=== PATIENT | female | born 1940 | race Caucasian/White ===

== ENCOUNTER → 2018-07-12 11:19 | Outpatient (CLI) | payer MEDICARE, BC, SELFPAY ==
[2018-07-12 12:44] LABS: BUN Creatinine Ratio 16.7 (6-22); Blood Urea Nitrogen 15 mg/dL (7-17); Calcium 9.3 mg/dL (8.4-10.2); Carbon Dioxide 28 mmol/L (22-32); Chloride 98 mmol/L (98-107); Cholesterol 189 mg/dL (140-199); Estimated Glomerular Filt Rate > 60.0 mL/min (>60); Glucose 115 mg/dL (80-110); HDL Cholesterol 84 mg/dL (40-60); HEMOLYSIS < 15 (0-50); LDL Cholesterol Calculated 89 mg/dL (<100); Sodium 141 mmol/L (137-145); Triglycerides 81 mg/dL (35-150)
[2018-07-12 15:29] LABS: Vitamin D 25 Hydroxy (D3) 37.8 ng/mL (30.0-100.0)
== END ==
PROVIDERS: PCP Student in an Organized Health Care Education/Training Program; Visit Provider Student in an Organized Health Care Education/Training Program
DX: E55.9 Vitamin D deficiency, unspecified (principal); I10 Essential (primary) hypertension; Z13.220 Encounter for screening for lipoid disorders
CPT/HCPCS: 36415; 80048; 80061; 82306

== ENCOUNTER → 2019-02-09 12:48 | Outpatient (CLI) | payer MEDICARE, BC, SELFPAY ==
--- NOTE | 2019-02-14 10:36 | PM.PFT.1 ---
Pulmonary Function Test Referral & Results Date Patient Seen: 02/09/19 Results: The spirometry demonstrates an FVC of 1.69 L which is 62% of predicted. The FEV1 was measured at 1.05 L which is 51% of predicted. The FEV1/FVC ratio was 62 which is 83% of predicted. Following the administration of bronchodilator there was 24% improvement in FEV1 and a 79% improvement in FEF 25-75%. Lung volumes show an SVC of 2.18 L which is 79% of predicted. The diffusing capacity was measured at 14.60 which is 58% of predicted. No hemoglobin value was provided, so no correction for potential anemia could be made, if appropriate. The maximum voluntary ventilation was reduced Interpretation: This study demonstrates moderately severe obstructive lung disease with evidence of significant benefit following bronchodilator administration based on improvement in FEV1 There is also mild restrictive lung disease present There is also significant disease at the capillary alveolar level based on reduction in diffusing capacity as above This is consistent with a diagnosis of COPD Clinical correlation suggested
== END ==
PROVIDERS: PCP Student in an Organized Health Care Education/Training Program; Visit Provider Student in an Organized Health Care Education/Training Program
DX: J44.9 Chronic obstructive pulmonary disease, unspecified (principal)
CPT/HCPCS: 94060; 94726; 94729

== ENCOUNTER → 2019-03-19 12:18 | Outpatient (CLI) | payer MEDICARE, BC, SELFPAY ==
[2019-03-19 15:27] LABS: Appearance Urine UA TURBID; Bilirubin Urine UA NEGATIVE (NEGATIVE); Color Urine UA YELLOW; Glucose Urine UA NEGATIVE (Negative); Ketones Urine UA TRACE (NEGATIVE); Leukocyte Esterase Urine UA 2+ (NEGATIVE); Nitrite Urine UA NEGATIVE (Negative); Occult Blood Urine UA 3+ (Negative); Protein Urine UA 2+ (Negative); Urobilinogen Urine UA 0.2 E.U./dL (0.2); pH Urine UA 5.5 (4.5-8.0)
[2019-03-19 16:09] LABS: Bacteria Urine Many (>30); Culture Indicated Urine Specimen Cultured; RBC Urine 10-30/HPF (0-5/HPF); Squamous Epithelial Cell Urine 0-1 /HPF (0-5/HPF); Transitional Epi Cells Urine 0-1/HPF (0-5/HPF); WBC Urine 10-30/HPF (0-5/HPF)
== END ==
PROVIDERS: PCP Student in an Organized Health Care Education/Training Program; Visit Provider Student in an Organized Health Care Education/Training Program
DX: R30.0 Dysuria (principal)
CPT/HCPCS: 81001; 87077; 87086; 87186

== ENCOUNTER → 2019-10-25 12:04 | Outpatient (CLI) | payer MEDICARE, BC, SELFPAY ==
[2019-10-25 13:27] LABS: BUN Creatinine Ratio 17.2 (6-22); Blood Urea Nitrogen 20 mg/dL (7-17); Calcium 9.7 mg/dL (8.4-10.2); Carbon Dioxide 28 mmol/L (22-32); Chloride 100 mmol/L (98-107); Estimated Glomerular Filt Rate 45.1 mL/min (>60); Glucose 97 mg/dL (80-110); HEMOLYSIS < 15 (0-50); Potassium 3.4 mmol/L (3.4-5.1); Sodium 139 mmol/L (137-145)
== END ==
PROVIDERS: PCP Student in an Organized Health Care Education/Training Program; Referring Provider Student in an Organized Health Care Education/Training Program; Visit Provider Student in an Organized Health Care Education/Training Program
DX: E87.6 Hypokalemia (principal); I10 Essential (primary) hypertension; T50.2X5A Adverse effect of carbonic-anhydrase inhibitors, benzothiadiazides and other diuretics, initial encounter
CPT/HCPCS: 36415; 80048

== ENCOUNTER → 2020-01-18 10:34 | Outpatient (CLI) | payer MEDICARE, BC, SELFPAY ==
[2020-01-18 11:52] LABS: BUN Creatinine Ratio 27.3 (6-22); Blood Urea Nitrogen 30 mg/dL (7-17); Calcium 10.1 mg/dL (8.4-10.2); Carbon Dioxide 29 mmol/L (22-32); Chloride 99 mmol/L (98-107); Estimated Glomerular Filt Rate 47.9 mL/min (>60); Glucose 117 mg/dL (80-110); HEMOLYSIS < 15 (0-50); Potassium 3.8 mmol/L (3.4-5.1); Sodium 137 mmol/L (137-145)
== END ==
PROVIDERS: PCP Student in an Organized Health Care Education/Training Program; Referring Provider Student in an Organized Health Care Education/Training Program; Visit Provider Student in an Organized Health Care Education/Training Program
DX: E87.6 Hypokalemia (principal); N17.9 Acute kidney failure, unspecified
CPT/HCPCS: 36415; 80048

== ENCOUNTER → 2022-06-09 13:40 | Outpatient (CLI) | payer MEDICARE, BC, SELFPAY ==
[2022-06-09 15:47] LABS: Add Manual Diff / Slide Review NO; Basophils Absolute Auto 0 /uL (0-100); Eosinophils Absolute Auto 100 /uL (0-450); Eosinophils Percent Auto 2.7 % (2-4); Hematocrit 35.6 % (36-46); Hemoglobin 11.9 g/dL (12.0-16.0); Lymphocytes Absolute Auto 1300 /uL (1100-4500); Lymphocytes Percent Auto 28.8 % (25-40); Mean Corpuscular HGB Conc 33.6 % (30-36); Mean Corpuscular Hemoglobin 32.9 PG (26-34); Mean Corpuscular Volume 97.9 fL (80-100); Monocytes Absolute Auto 500 /uL (0-900); Neutrophils Absolute Auto 2500 /uL (1500-7000); Neutrophils Percent Auto 55.5 % (50-75); Platelet Count 183 X10^3/uL (150-400); Red Blood Cell Count 3.63 X10^6/uL (4.0-5.2); Red Cell Distribution Width 15.2 % (11.6-14.8); White Blood Cell Count 4.6 X10^3/uL (4.5-11.0)
[2022-06-09 15:59] LABS: Alanine Aminotransferase 22 IU/L (<35); Albumin 3.9 g/dL (3.5-5.0); Albumin Globulin Ratio 1.4 (1.0-2.8); Alkaline Phosphatase 126 U/L (38-126); Aspartate Aminotransferase 33 IU/L (14-36); Bilirubin Total 0.7 mg/dL (0.2-1.3); Blood Urea Nitrogen 16 mg/dL (7-17); Calcium 9.3 mg/dL (8.4-10.2); Carbon Dioxide 31 mmol/L (22-32); Chloride 97 mmol/L (98-107); Cholesterol 176 mg/dL (140-199); Estimated Glomerular Filt Rate 44 mL/min (>60); Globulin 2.8 g/dL (1.7-4.1); Glucose 117 mg/dL (80-110); HDL Cholesterol 65 mg/dL (40-60); HEMOLYSIS < 15 (0-50); LDL Cholesterol Calculated 82 mg/dL (<100); Potassium 3.5 mmol/L (3.4-5.1); Sodium 138 mmol/L (137-145); Total Protein 6.7 g/dL (6.3-8.2); Triglycerides 146 mg/dL (35-150)
[2022-06-09 16:02] LABS: Hemoglobin A1C% w Est Avg Glu 4.9 % (4.0-6.0)
[2022-06-09 16:29] LABS: TSH w/ Reflex to FT4 1.16 uIU/mL (0.47-4.68)
== END ==
PROVIDERS: PCP Family Medicine; Referring Provider Family Medicine; Visit Provider Family Medicine
DX: R00.2 Palpitations (principal); I10 Essential (primary) hypertension
CPT/HCPCS: 36415; 80053; 80061; 83036; 84443; 85025

== ENCOUNTER → 2022-06-28 16:23 | Outpatient (CLI) | payer MEDICARE, BC, SELFPAY | PROVIDERS: PCP Family Medicine; Visit Provider Family Medicine | DX: R10.9 Unspecified abdominal pain (principal) | CPT/HCPCS: 87086 ==

== ENCOUNTER 2022-07-21 11:27 | Emergency (ER) | payer MEDICARE, BC, SELFPAY ==
[2022-07-21 12:14] VITALS: BP 148/68; PULSE 72; RESP 16; TEMP 36.8; O2SAT 93; BMI 31.6
--- NOTE | 2022-07-21 13:16 | ED.URI ---
HPI - URI/Sore Throat General Chief Complaint: Upper Respiratory Symptoms Stated Complaint: x7 days cough, SOB, fever 100.6, high blood pressu Time Seen by Provider: 07/21/22 12:23 Source: patient Mode of arrival: Ambulatory History of Present Illness HPI Narrative: This is a 82-year-old female presents to the emergency department complaining of 1 week with a mild cough last week, and today she feels flushed she had a low-grade fever, not feeling well, her temperature was 100.6? this morning and she has a headache and chills which is new. She has a history of hypertension, COPD, OLEGARIO, and was concerned about influenza. She states that she is received influenza vaccine this year as well as the COVID with booster vaccines. Patient is not anticoagulated, does not have history of diabetes. She denies being short of breath or difficulty breathing, states that she has a cough which has been worsening. She denies any difficulty breathing, swelling, vomiting, dysuria, or stool changes. Related Data Home Medications Medication Instructions Recorded Confirmed vitamin B complex (B Complex 1 1 tab PO DAILY 05/25/18 06/28/22 tablet) aspirin 81 mg tablet,delayed 81 mg PO DAILY 06/08/22 06/28/22 release (Adult Low Dose Aspirin) fluticasone propionate 44 2 puff inhalation BID 06/08/22 06/28/22 mcg/actuation HFA aerosol inhaler hydralazine 10 mg tablet 10 mg PO BID 06/08/22 06/28/22 magnesium 250 mg tablet 250 mg PO DAILY 06/08/22 06/28/22 potassium citrate 99 mg capsule mg PO 06/08/22 06/28/22 carvedilol 25 mg tablet 12.5 mg PO BID 06/28/22 06/28/22 Previous Rx's Medication Instructions Recorded tiotropium bromide 2.5 2 puff inhalation DAILY #4 grams 06/11/19 mcg/actuation mist for inhalation (Spiriva Respimat) rosuvastatin 5 mg tablet 5 mg PO DAILY #90 tabs 11/23/19 diltiazem HCl 360 mg capsule,24 360 mg PO DAILY #90 caps 04/09/20 hr,extended release irbesartan 150 mg tablet 150 mg PO BID #180 tabs 04/15/20 clonidine 0.2 mg/24 hr weekly 1 patch transdermal QWEEK #12 ea 05/23/20 transdermal patch benzonatate 200 mg capsule 200 mg PO BID PRN cough #14 caps 07/21/22 cetirizine 10 mg tablet 10 mg PO DAILY PRN congestion #30 07/21/22 tabs prednisone 20 mg tablet 20 mg PO DAILY 5 days #5 tabs 07/21/22 Allergies Allergy/AdvReac Type Severity Reaction Status Date / Time No Known Drug Allergies Allergy Verified 07/21/22 12:14 Review of Systems Review of Systems ROS Unobtainable: All systems reviewed & are unremarkable except as noted in HPI and below Patient History Medical History Breast cancer (2012) Chicken pox COPD (chronic obstructive pulmonary disease) (2013) Depression Eczema (2008) Fractures (2014) Herpes Hypertension (1983) Macular degeneration (~2004) Measles Mumps Myocardial infarction (~2020) Osteoarthritis (~1979) Osteopenia Partial blindness (~2009) Shoulder pain (2015) Sleep apnea (2013) Family History Father Stroke Mother Cancer Brother Cancer Sister No problems noted. Social History Smoking Status: Former smoker Smoking Status: Former smoker alcohol intake frequency: holidays/special occasions only Substance Use Type: does not use Exam Narrative Exam Narrative: Reviewed vitals signs and nursing notes. General: cooperative, comfortable, in no acute distress, well groomed, appears tired, over dressed for the temperature HEENT: symmetrical facial expressions, moist mucous membranes Cardiovascular: regular rate and rhythm, no peripheral edema, warm extremities Respiratory: normal effort, able to speak in complete sentences, without wheezing, stridor, or abnormal breath sounds. No retractions or tachypnea. Occasional cough occasional squeak GI: abdomen soft, nontender to palpation, nondistended, without masses, rebound tenderness or exquisite tenderness with exam. MSK: moves all extremities, neurovascularly intact, no weakness, normal tone Skin: brisk capillary refill, without pallor or erythema Neuro: normal speech and cognition, A&O x3, ambulatory, clear speech Psych: mental status is grossly normal, congruent mood, normal affect, pleasant and cooperative Initial Vital Signs Initial Vital Signs: Vital Signs Temperature 98.2 F 07/21/22 12:14 Pulse Rate 72 07/21/22 12:14 Respiratory Rate 16 07/21/22 12:14 Blood Pressure 148/68 H 07/21/22 12:14 Pulse Oximetry 93 07/21/22 12:14 Oxygen Delivery Method 07/21/22 12:14 Course Orders Ordered: Discontinued Medications Ibuprofen (Ibuprofen 400 Mg Tablet) 600 mg PO NOW ONE Stop: 07/21/22 12:43 Vital Signs Vital signs: Vital Signs - 8 hr 07/21/22 12:14 Temperature 98.2 F Pulse Rate 72 Respiratory Rate 16 Blood Pressure 148/68 H Pulse Oximetry 93 Oxygen Delivery Method Room Air MDM - URI/Sore Throat Lab Data Labs: Lab Results 07/21/22 Range/Units 12:18 SARS-CoV-2 (PCR) Positive H (Negative) Influenza A (RT-PCR) Flu a negative (NEGATIVE) Influenza B (RT-PCR) Flu b negative (NEGATIVE) RSV (PCR) Negative (Negative) MDM Narrative Medical decision making narrative: This is an 82-year-old female presents to the emergency department with a cough which has been mild for the last week, worsening last night with mild fever this morning, she has not taken Tylenol or ibuprofen prior to arrival. She came in with concern about her COPD history, and for influenza. She did not want to wait for 3 hours or more in the waiting room. She left after my evaluation. on my exam, she had an occasional squeak on exhalation but does not have increased work of breathing, hypoxia, or worsening symptoms. Patient's respiratory panel came back positive for COVID-19. She was phoned as she left prior to receiving these results, discussed this with her and she is in quarantine already. She is staying at [facility], discussed symptom management, she was prescribed Zyrtec, benzonatate, and prednisone prior to this diagnosis. I talked to her on the phone and told her that if she does not have significant shortness of breath to avoid taking the prednisone unless her shortness of breath is worsening. And then if it is to come back to the emergency department. She states understanding. This is day 2 over symptoms. She is without hypoxia, respiratory distress, dehydration, or focal exam to suggest secondary bacterial infection. Discussed CDC guidelines for quarantine, mask wearing, physical distancing, and infection prevention measures such as frequent handwashing. Discussed supportive treatments: Tylenol/Motrin as needed for pain/fever. OTC decongestant medications and/or antihistamines for symptomatic relief. Maintain adequate fluid intake. Follow-up with PCP as directed. Return to clinic/ER instructions discussed for new, not improving, or worsening symptoms. All questions answered. Discharge Plan Departure Patient Disposition: Home Clinical Impression: COVID-19, History of COPD Cough Qualifiers: Cough type: acute Qualified Code(s): R05.1 - Acute cough Instructions: DI for Chronic Obstructive Pulmonary Disease Activity Restrictions/Additional Instructions: *You have been diagnosed with [ ] *What to do: *Please continue to take your regular medications as directed. [ ] New medication prescriptions sent to your pharmacy: [ ] [ ] New medication written as a paper prescription [ ] No new medications given *Please follow up with your primary care provider in 2-3 days, call for an appointment. Let them know you were seen in the Emergency Department and that we asked that you be seen for follow-up. We will electronically transmit a record of today's note if your PCP is in our system *If you do not have a primary care provider please contact [phone] to establish care with one of the [facility] primary care providers. *Return to Emergency Department if you should have any new, worsening, or concerning symptoms, such as [fever greater than 101F, chills, worsening pain, persistent vomiting or other bothersome symptoms]. Prescriptions: New prednisone 20 mg tablet 20 mg PO DAILY 5 Days Qty: 5 0RF benzonatate 200 mg capsule 200 mg PO BID PRN (Reason: cough) Qty: 14 0RF cetirizine 10 mg tablet 10 mg PO DAILY PRN (Reason: congestion) Qty: 30 0RF No Action vitamin B complex [B Complex 1] tablet 1 tab PO DAILY Spiriva Respimat 2.5 mcg/actuation mist 2 puff INHALATION DAILY Qty: 4 11RF rosuvastatin 5 mg tablet 5 mg PO DAILY Qty: 90 3RF diltiazem HCl 360 mg capsule,extended release 24 hr 360 mg PO DAILY Qty: 90 3RF irbesartan 150 mg tablet 150 mg PO BID Qty: 180 1RF clonidine 0.2 mg/24 hr patch weekly 1 patch Transdermal QWEEK Qty: 12 1RF aspirin [Adult Low Dose Aspirin] 81 mg tablet,delayed release (DR/EC) 81 mg PO DAILY hydralazine 10 mg tablet 10 mg PO BID magnesium 250 mg tablet 250 mg PO DAILY potassium citrate 99 mg capsule PO fluticasone propionate 44 mcg/actuation HFA aerosol inhaler 2 puff inhalation BID Rx Instructions: administer with spacer carvedilol 25 mg tablet 12.5 mg PO BID Rx Instructions: must administer with a meal/food Referrals: Anum Quispe DO [Primary Care Provider] - Visit Report Forms: Patient Portal/API
[2022-07-21 14:30] LABS: Influenza A - CEPHEID Flu A NEGATIVE (NEGATIVE); Influenza B - CEPHEID Flu B NEGATIVE (NEGATIVE); Respiratory Syncytial Virus Negative (Negative)
[2022-07-21 14:35] LABS: COVID-19 CEPHEID 4-PLEX PCR POSITIVE (Negative)
== END 2022-07-21 13:42 | disposition home or self-care (01) ==
PROVIDERS: Emergency Medicine; Emergency Provider Nurse Practitioner Critical Care Medicine; PCP Family Medicine
DX: U07.1 COVID-19 (principal); R05.1 Acute cough; Z87.09 Personal history of other diseases of the respiratory system; Z79.899 Other long term (current) drug therapy
CPT/HCPCS: 0241U; 99281; 99282

== ENCOUNTER → 2022-10-04 | Outpatient (CLI) | payer MEDICARE, BC, SELFPAY ==
--- NOTE | 2022-10-04 | DI.RAD.S_ITS ---
PROCEDURE: XR KUB INDICATIONS: KIDNEY STONE TECHNIQUE: One view of the abdomen acquired. COMPARISON: None. FINDINGS: Surgical changes and devices: Prior cholecystectomy. Multilevel lumbosacral posterior/interbody fusion incompletely evaluated. Bowel: Bowel gas pattern is normal. Soft tissues: No suspicious abdominal calcifications. Visualized solid organ contours appear normal in size. Bones: No suspicious bony lesions. Symmetric hip joint degeneration. IMPRESSION: No radiopaque renal, ureteral or bladder calculi. Dictated by: Hua Gomez [facility] Interpreted: Gopi Lam MD on 10/04/2022 at 14:20 Transcribed by: [place] on 10/04/2022 at 14:21 Approved by: Gopi Lam M.D. on 10/18/2022 at 15:33
== END ==
LOC: DI 13:40
PROVIDERS: PCP Family Medicine; Referring Provider Urology; Visit Provider Urology
DX: N20.0 Calculus of kidney (principal)
CPT/HCPCS: 74018

== ENCOUNTER → 2023-01-28 13:02 | Outpatient (CLI) | payer MEDICARE, BC, SELFPAY ==
[2023-01-28 15:15] LABS: Add Manual Diff / Slide Review NO; Basophils Absolute Auto 100 /uL (0-100); Eosinophils Absolute Auto 200 /uL (0-450); Eosinophils Percent Auto 3.8 % (2-4); Hematocrit 34.9 % (36-46); Hemoglobin 11.8 g/dL (12.0-16.0); Lymphocytes Absolute Auto 1300 /uL (1100-4500); Lymphocytes Percent Auto 23.6 % (25-40); Mean Corpuscular HGB Conc 33.7 % (30-36); Mean Corpuscular Volume 97.8 fL (80-100); Monocytes Absolute Auto 600 /uL (0-900); Monocytes Percent Auto 11.7 % (3-14); Neutrophils Absolute Auto 3200 /uL (1500-7000); Neutrophils Percent Auto 59.9 % (50-75); Platelet Count 170 X10^3/uL (150-400); Red Blood Cell Count 3.57 X10^6/uL (4.0-5.2); Red Cell Distribution Width 14.7 % (11.6-14.8); White Blood Cell Count 5.3 X10^3/uL (4.5-11.0)
[2023-01-28 16:47] LABS: Alanine Aminotransferase 21 IU/L (<35); Albumin 3.8 g/dL (3.5-5.0); Albumin Globulin Ratio 1.3 (1.0-2.8); Alkaline Phosphatase 128 U/L (38-126); Aspartate Aminotransferase 31 IU/L (14-36); BUN Creatinine Ratio 21.2 (6-22); Bilirubin Total 0.5 mg/dL (0.2-1.3); Blood Urea Nitrogen 29 mg/dL (7-17); Calcium 8.9 mg/dL (8.4-10.2); Carbon Dioxide 34 mmol/L (22-32); Chloride 98 mmol/L (98-107); Estimated Glomerular Filt Rate 39 mL/min (>60); Glucose 99 mg/dL (80-110); HEMOLYSIS < 15 (0-50); Potassium 3.7 mmol/L (3.4-5.1); Sodium 139 mmol/L (137-145); Total Protein 6.8 g/dL (6.3-8.2)
== END ==
PROVIDERS: PCP Family Medicine; Referring Provider Family Medicine; Visit Provider Family Medicine
DX: Z00.00 Encounter for general adult medical examination without abnormal findings (principal); I10 Essential (primary) hypertension; I48.19 Other persistent atrial fibrillation; N18.30 Chronic kidney disease, stage 3 unspecified
CPT/HCPCS: 36415; 80053; 85025

== ENCOUNTER → 2023-02-01 15:04 | Outpatient (CLI) | payer MEDICARE, BC, SELFPAY ==
--- NOTE | 2023-03-02 10:23 | P.PFT.S_ITS ---
Pulmonary Function Test Referral & Results Date Patient Seen: 02/01/23 Results: The?spirometry?demonstrates?an?FVC?of?1.69?L?which?is?66%?of?predicted. The?FEV1?was?measured?at?1.10?L?which?is?58%?of?predicted. The?FEV1/FVC?ratio?was?65?which?is?88%?of?predicted. Following?the?admini stration?of?bronchodilator?there?was?11%?improvement?in?FEV1?and?a?35%?improveme nt?in?FEF?25-75%. Lung?volumes?show?an?SVC?of?1.95?L?which?is?73%?of?predicted. The?diffusing?capacity?was?measured?at ?13.33?which?is?53%?of?predicted.??No?hemoglobin?value?was?provided,?so?no?corre ction?for?potential?anemia?could?be?made,?if?appropriate. The?maximum?voluntary?ventilation?was?reduced Interpretation: This?study?demonstrates?moderate?obstructive?lung?disease?based?on?reduction?FEV 1?although?FEV1/FVC?ratio?is?relatively?preserved.??T here?is?evidence?of?some?minimal?benefit?following?bronchodilator?as?noted?above There?is?a?[id number]-[id number]?reduction?in?lung?volumes?suggesting?the?presence?of ?restrictive?lung?disease?as?well The re?is?also?moderate?reduction?diffusing?capacity?suggesting?the?presence?of?dise ase?at?the?capillary?alveolar?level Altogether?this?is?consistent?with?a?diagnosis?of?COPD? Clinical?correlation?suggested
--- NOTE | 2023-03-02 10:23 | PM.PFT.1 ---
Pulmonary Function Test Referral & Results Date Patient Seen: 02/01/23 Results: The?spirometry?demonstrates?an?FVC?of?1.69?L?which?is?66%?of?predicted. The?FEV1?was?measured?at?1.10?L?which?is?58%?of?predicted. The?FEV1/FVC?ratio?was?65?which?is?88%?of?predicted. Following?the?administration?of?bronchodilator?there?was?11%?improvement?in?FEV1?and?a?35%?improvement?in?FEF?25-75%. Lung?volumes?show?an?SVC?of?1.95?L?which?is?73%?of?predicted. The?diffusing?capacity?was?measured?at?13.33?which?is?53%?of?predicted.??No?hemoglobin?value?was?provided,?so?no?correction?for?potential?anemia?could?be?made,?if?appropriate. The?maximum?voluntary?ventilation?was?reduced Interpretation: This?study?demonstrates?moderate?obstructive?lung?disease?based?on?reduction?FEV1?although?FEV1/FVC?ratio?is?relatively?preserved.??There?is?evidence?of?some?minimal?benefit?following?bronchodilator?as?noted?above There?is?a?[id number]?reduction?in?lung?volumes?suggesting?the?presence?of?restrictive?lung?disease?as?well There?is?also?moderate?reduction?diffusing?capacity?suggesting?the?presence?of?disease?at?the?capillary?alveolar?level Altogether?this?is?consistent?with?a?diagnosis?of?COPD? Clinical?correlation?suggested
== END ==
PROVIDERS: PCP Family Medicine; Referring Provider Family Medicine; Visit Provider Family Medicine
DX: J44.9 Chronic obstructive pulmonary disease, unspecified (principal); Z87.891 Personal history of nicotine dependence
CPT/HCPCS: 94060; 94726; 94729

== ENCOUNTER 2023-06-16 08:21 | Emergency (ER) | payer MEDICARE, BC, SELFPAY ==
[2023-06-16] VITALS (40 sets, daily range): BP systolic 154–245; BP diastolic 66–116; PULSE 70–91; RESP 10–32; TEMP 36.3; O2SAT 90–98; BMI 31.6
--- NOTE | 2023-06-16 08:32 | DI.RAD.S_ITS ---
PROCEDURE: XR CHEST 1V INDICATIONS: chest pain TECHNIQUE: One view of the chest was acquired. COMPARISON: None. FINDINGS: Surgical changes and devices: None. Lungs and pleura: Lungs are clear. No pleural effusions or pneumothorax. Mediastinum: Mediastinal contours appear normal. Heart size is enlarged. Bones and chest wall: No suspicious bony lesions. Overlying soft tissues appear unremarkable. IMPRESSION: Portable chest within normal limits for age. Dictated by: Malika Santamaria M.D. on 06/16/2023 at 9:01 Approved by: Malika Santamaria M.D. on 06/16/2023 at 9:09
[2023-06-16] MEDS: ASPIRIN 81 MG CHEW TAB 324 MG PO (08:43)
[2023-06-16 08:46] LABS: Add Manual Diff / Slide Review NO; Basophils Absolute Auto 0 /uL (0-100); Eosinophils Absolute Auto 100 /uL (0-450); Eosinophils Percent Auto 2.5 % (2-4); Hematocrit 38.1 % (36-46); Hemoglobin 12.5 g/dL (12.0-16.0); Lymphocytes Absolute Auto 1300 /uL (1100-4500); Mean Corpuscular HGB Conc 32.8 % (30-36); Mean Corpuscular Hemoglobin 31.3 PG (26-34); Mean Corpuscular Volume 95.4 fL (80-100); Monocytes Absolute Auto 500 /uL (0-900); Monocytes Percent Auto 10.9 % (3-14); Neutrophils Absolute Auto 2900 /uL (1500-7000); Neutrophils Percent Auto 59.6 % (50-75); Platelet Count 184 X10^3/uL (150-400); Red Cell Distribution Width 16.6 % (11.6-14.8); White Blood Cell Count 4.9 X10^3/uL (4.5-11.0)
[2023-06-16] MEDS: carvediloL 12.5 MG TABLET PO (08:47)
[2023-06-16] MEDS: dilTIAZem CD 180 MG CAP PO (08:48)
--- NOTE | 2023-06-16 08:51 | ED_ITS ---
HPI - Chest Pain General Chief Complaint: Chest Pain Stated Complaint: N T-2 can't eat/weak/Afib Time Seen by Provider: 06/16/23 08:26 Mode of arrival: Wheelchair History of Present Illness HPI narrative: Patient here for shortness of breath feeling weak dizzy denies any chest pain just palpitations discomfort. Patient blood pressure noted. She is not taken her diltiazem or carvedilol this morning yet. Patient has history of paroxysmal atrial fibrillation and is on Eliquis. She did see her cardiology office June 07 of this year for routine checkup. Her carvedilol was lowered in half twice a day. She still on the diltiazem and clonidine. Verapamil was discontinued. Patient denies any syncope. Patient says she is had some chills and nausea. No cough or congestion. No urinary complaints. She is felt tired and fatigued. Related Data Home Medications Medication Instructions Recorded Confirmed vitamin B complex (B Complex 1 1 tab PO DAILY 05/25/18 06/24/23 tablet) magnesium 250 mg tablet 250 mg PO DAILY 06/08/22 06/24/23 potassium citrate 99 mg capsule mg PO 06/08/22 06/24/23 apixaban 5 mg tablet (Eliquis) 5 mg PO BID 09/08/22 06/24/23 diltiazem HCl 180 mg capsule,24 180 mg PO DAILY 09/08/22 06/24/23 hr,extended release albuterol sulfate 90 mcg/actuation 2 puff inhalation ONCE 02/25/23 06/24/23 aerosol inhaler furosemide 20 mg tablet 20 mg PO DAILY 02/25/23 06/24/23 isosorbide mononitrate 30 mg 30 mg PO DAILY 02/25/23 06/24/23 tablet,extended release 24 hr carvedilol 12.5 mg tablet 12.5 mg PO BID 05/25/23 06/24/23 Previous Rx's Medication Instructions Recorded rosuvastatin 5 mg tablet 5 mg PO DAILY #90 tabs 11/23/19 cetirizine 10 mg tablet 10 mg PO DAILY PRN congestion #30 07/21/22 tabs fluticasone 250 mcg-salmeterol 50 1 inh inhalation BID #180 ea 08/02/22 mcg/dose blistr powdr for inhalation (Wixela Inhub) tiotropium bromide 2.5 2 puff inhalation DAILY #4 grams 01/12/23 mcg/actuation mist for inhalation (Spiriva Respimat) irbesartan 150 mg tablet 150 mg PO DAILY #90 tabs 04/13/23 clonidine 0.1 mg/24 hr weekly See Rx Instructions .Route 04/20/23 transdermal patch .COMPLEX #12 patches Allergies Allergy/AdvReac Type Severity Reaction Status Date / Time No Known Drug Allergies Allergy Verified 06/24/23 14:09 Review of Systems Review of Systems Narrative: GENERAL: Pause chills, fatigue, malaise, negative fever, sweats. HEENT: negative sinus pain, ear pain, sore throat RESPIRATORY: Positive dyspnea, CARDIOVASCULAR: negative chest pain, positive palpitations GASTROINTESTINAL: Positive nausea, negative vomiting, abdominal pain : negative dysuria, frequency, hematuria MUSCULOSKELETAL: negative muscle or bony pain SKIN: negative rash, skin lesions NEUROLOGIC: negative weakness, numbness ROS Unobtainable: All systems reviewed & are unremarkable except as noted in HPI and below Patient History Medical History (Updated 07/01/23 @ 00:01 by ) Grieving Encounter for initial annual wellness visit (AWV) in Medicare patient CKD (chronic kidney disease) stage 3, GFR 30-59 ml/min Atrial fibrillation, persistent Insomnia Osteopenia Measles Herpes Partial blindness (~2009) Myocardial infarction (~2020) Chicken pox Mumps Fractures (2014) Shoulder pain (2015) Depression COPD (chronic obstructive pulmonary disease) (2013) Sleep apnea (2013) Osteoarthritis (~1979) Eczema (2008) Macular degeneration (~2004) Hypertension (1983) Breast cancer (2012) Family History Father Stroke Mother Cancer Brother Cancer Sister No problems noted. Social History Smoking Status: Former smoker Smoking Status: Former smoker alcohol intake frequency: holidays/special occasions only Substance Use Type: does not use Exam Narrative Exam Narrative: GENERAL: in no distress, not toxic not dyspneic HEAD: Normocephalic. EYES: Pupils equal round ENT: Mucous membranes moist. NECK: Trachea midline. CARDIOVASCULAR: Regular rate and rhythm RESPIRATORY: Clear to auscultation. Breath sounds equal bilaterally. No wheezes, rales, or rhonchi. GASTROINTESTINAL: Abdomen soft, non-tender EXTREMITIES: No gross deformities. BACK: No flank tenderness. NEURO: AOx4. SKIN: Warm and dry PSYCH: Not anxious, is cooperative Initial Vital Signs Initial Vital Signs: Vital Signs Temperature 97.3 F L 06/16/23 08:28 Pulse Rate 89 06/16/23 08:28 Respiratory Rate 22 06/16/23 08:28 Blood Pressure 245/116 H 06/16/23 08:28 Pulse Oximetry 90 L 06/16/23 08:28 Oxygen Delivery Method Room Air 06/16/23 08:28 Course Orders Ordered: Discontinued Medications Aspirin (Aspirin 81 Mg Chew Tab) 324 mg PO NOW ONE Stop: 06/16/23 08:33 Last Admin: 06/16/23 08:43 Dose: 324 mg Documented By: MATA Carvedilol (Carvedilol 12.5 Mg Tablet) 12.5 mg PO NOW ONE Stop: 06/16/23 08:40 Last Admin: 06/16/23 08:47 Dose: 12.5 mg Documented By: MATA Diltiazem HCl (Diltiazem Cd 180 Mg Cap) 180 mg PO NOW ONE Stop: 06/16/23 08:40 Last Admin: 06/16/23 08:48 Dose: 180 mg Documented By: MATA Heparin Sodium/Dextrose (Heparin Drip) 25,000 unit in 500 mls @ 20.031 mls/hr IV CONT SYED; Protocol Last Titration: 06/16/23 16:10 Dose: 12 units/kg/hr, 20.031 mls/hr Documented By: TEOFILO Co-signed By: KF Admin: 06/16/23 12:40 Dose: 12 units/kg/hr, 20.031 mls/hr Documented By: KATHRINE Co-signed By: WVVerna Nitroglycerin (Nitroglycerin Oint 1 Inch/Gm Oint...G.) 0.5 inch TOP NOW ONE Stop: 06/16/23 10:54 Last Admin: 06/16/23 10:57 Dose: 0.5 inch Documented By: ANGY Vital Signs Vital signs: Vital Signs - 8 hr 06/16/23 08:28 06/16/23 08:29 06/16/23 08:29 Temperature 97.3 F L Pulse Rate 89 70 Respiratory Rate 22 Blood Pressure 245/116 H 245/116 H Pulse Oximetry 90 L Oxygen Delivery Method Room Air 06/16/23 08:30 06/16/23 08:31 06/16/23 08:31 Temperature Pulse Rate 90 91 H Respiratory Rate 18 16 Blood Pressure 230/105 H Pulse Oximetry 93 Oxygen Delivery Method 06/16/23 08:47 06/16/23 09:00 06/16/23 09:00 Temperature Pulse Rate 80 83 Respiratory Rate 15 Blood Pressure 230/105 H 220/105 H Pulse Oximetry 97 Oxygen Delivery Method 06/16/23 09:15 06/16/23 09:15 06/16/23 09:21 Temperature Pulse Rate 79 Respiratory Rate 12 Blood Pressure 213/98 H 191/95 H Pulse Oximetry 94 Oxygen Delivery Method 06/16/23 09:21 06/16/23 09:30 06/16/23 09:30 Temperature Pulse Rate 79 77 Respiratory Rate 17 Blood Pressure 176/84 H Pulse Oximetry 94 94 Oxygen Delivery Method 06/16/23 09:45 06/16/23 09:45 06/16/23 10:00 Temperature Pulse Rate 77 74 Respiratory Rate 14 17 Blood Pressure 154/82 H Pulse Oximetry 95 94 Oxygen Delivery Method 06/16/23 10:00 06/16/23 10:15 06/16/23 10:15 Temperature Pulse Rate 74 Respiratory Rate 10 L Blood Pressure 157/84 H 179/79 H Pulse Oximetry 97 Oxygen Delivery Method 06/16/23 10:30 06/16/23 10:46 06/16/23 10:46 Temperature Pulse Rate 74 79 Respiratory Rate 11 L 15 Blood Pressure 182/87 H Pulse Oximetry 96 95 Oxygen Delivery Method 06/16/23 10:52 06/16/23 10:52 06/16/23 10:57 Temperature Pulse Rate 79 76 Respiratory Rate Blood Pressure 167/96 H 167/96 H Pulse Oximetry 96 Oxygen Delivery Method 06/16/23 11:03 06/16/23 11:04 06/16/23 11:04 Temperature Pulse Rate 85 83 Respiratory Rate 25 H Blood Pressure 190/95 H Pulse Oximetry 96 95 Oxygen Delivery Method 06/16/23 11:15 06/16/23 11:15 06/16/23 11:30 Temperature Pulse Rate 75 73 Respiratory Rate 15 14 Blood Pressure 189/86 H Pulse Oximetry 95 95 Oxygen Delivery Method 06/16/23 11:30 06/16/23 11:45 06/16/23 11:45 Temperature Pulse Rate 74 Respiratory Rate 19 Blood Pressure 195/89 H 174/79 H Pulse Oximetry 94 Oxygen Delivery Method 06/16/23 12:00 Temperature Pulse Rate 78 Respiratory Rate 22 Blood Pressure Pulse Oximetry 95 Oxygen Delivery Method MDM - Chest Pain Lab Data 06/16/23 08:33 06/16/23 08:33 Labs: Lab Results 06/16/23 06/16/23 06/16/23 Range/Units 08:33 09:00 11:05 WBC 4.9 (4.5-11.0) X10^3/uL RBC 4.00 (4.0-5.2) X10^6/uL Hgb 12.5 (12.0-16.0) g/dL Hct 38.1 (36-46) % MCV 95.4 (80-100) fL MCH 31.3 (26-34) PG MCHC 32.8 (30-36) % RDW 16.6 H (11.6-14.8) % Plt Count 184 (150-400) X10^3/uL Neut % (Auto) 59.6 (50-75) % Lymph % (Auto) 26.0 (25-40) % [place] % (Auto) 10.9 (3-14) % Eos % (Auto) 2.5 (2-4) % Baso % (Auto) 1.0 (0-2) % Neut # (Auto) 2900 (0058-8133) /uL Lymph # (Auto) 1300 (9202-6733) /uL [place] # (Auto) 500 (0-900) /uL Eos # (Auto) 100 (0-450) /uL Baso # (Auto) 0 (0-100) /uL PT 14.2 H (10.1-12.7) SECONDS INR 1.2 (0.9-1.3) APTT 34 (26-36) SECONDS Sodium 137 (137-145) mmol/L Potassium 3.4 (3.4-5.1) mmol/L Chloride 98 (98-107) mmol/L Carbon Dioxide 30 (22-32) mmol/L BUN 13 (7-17) mg/dL Creatinine 1.09 H (0.52-1.04) mg/dL Estimated GFR 50 L (>60) mL/min BUN/Creatinine Ratio 11.9 (6-22) Glucose 124 H (80-110) mg/dL Calcium 9.9 (8.4-10.2) mg/dL Magnesium 1.8 (1.6-2.3) mg/dL Total Bilirubin 1.0 (0.2-1.3) mg/dL AST 35 (14-36) IU/L ALT 20 (<35) IU/L Alkaline Phosphatase 137 H (38-126) U/L Total Creatine Kinase 40 (30-135) U/L Troponin I 0.013 (0.01-0.034) ng/mL Total Protein 7.5 (6.3-8.2) g/dL Albumin 4.3 (3.5-5.0) g/dL Globulin 3.2 (1.7-4.1) g/dL Albumin/Globulin Ratio 1.3 (1.0-2.8) Lipase 89 (23-300) U/L Urine Color Yellow Urine Appearance Clear Urine pH 7.0 (4.5-8.0) Ur Specific [place] 1.010 (1.000-1.035) Urine Protein 3+ H (Negative) Urine Glucose (UA) Negative (Negative) g/dL Urine Ketones 1+ H (NEGATIVE) Urine Occult Blood Negative (Negative) Urine Nitrate Negative (Negative) Urine Bilirubin Negative (NEGATIVE) Urine Urobilinogen 0.2 (0.2) E.U./dL Ur Leukocyte Esterase Trace H (NEGATIVE) Urine RBC None seen (0-5/HPF) Urine WBC 1-5/hpf (0-5/HPF) Ur Squamous Epith Cells 5-10 /hpf H (0-5/HPF) Ur Transition Epith Cell 1-5/hpf (0-5/HPF) Urine Bacteria None seen (None) Hyaline Casts 1-5/lpf (None) Ur Culture Indicated? Specimen cultured Chlamy pneumoniae PCR Not detected (Not Detect) Adenovirus (PCR) Not detected (Not Detect) B.parapertussis DNA PCR Not detected (Not Detecte) Coronavirus OC43 (PCR) Not detected (Not Detect) Coronavirus HKU1 (PCR) Not detected (Not Detect) Coronavirus 229E (PCR) Not detected (Not Detect) SARS-CoV-2 (PCR) Not detected (Not Detecte) Coronavirus NL63 (PCR) Not detected (Not Detect) Human Metapneumovir PCR Not detected (Not Detect) Influenza Type A (PCR) Not detected (Not Detect) Influenza Type B (PCR) Not detected (Not Detect) M. pneumoniae (PCR) Not detected (Not Detect) Parainfluenza 1 (PCR) Not detected (Not Detect) Parainfluenza 2 (PCR) Not detected (Not Detect) Parainfluenza 3 (PCR) Not detected (Not Detect) Parainfluenza 4 (PCR) Not detected (Not Detect) RSV (PCR) Not detected (Not Detect) Entero/Rhino (PCR) Not detected (Not Detect) 06/16/23 Range/Units 12:10 WBC (4.5-11.0) X10^3/uL RBC (4.0-5.2) X10^6/uL Hgb (12.0-16.0) g/dL Hct (36-46) % MCV (80-100) fL MCH (26-34) PG MCHC (30-36) % RDW (11.6-14.8) % Plt Count (150-400) X10^3/uL Neut % (Auto) (50-75) % Lymph % (Auto) (25-40) % [place] % (Auto) (3-14) % Eos % (Auto) (2-4) % Baso % (Auto) (0-2) % Neut # (Auto) (8599-4213) /uL Lymph # (Auto) (2253-9474) /uL [place] # (Auto) (0-900) /uL Eos # (Auto) (0-450) /uL Baso # (Auto) (0-100) /uL PT (10.1-12.7) SECONDS INR (0.9-1.3) APTT (26-36) SECONDS Sodium (137-145) mmol/L Potassium (3.4-5.1) mmol/L Chloride (98-107) mmol/L Carbon Dioxide (22-32) mmol/L BUN (7-17) mg/dL Creatinine (0.52-1.04) mg/dL Estimated GFR (>60) mL/min BUN/Creatinine Ratio (6-22) Glucose (80-110) mg/dL Calcium (8.4-10.2) mg/dL Magnesium (1.6-2.3) mg/dL Total Bilirubin (0.2-1.3) mg/dL AST (14-36) IU/L ALT (<35) IU/L Alkaline Phosphatase (38-126) U/L Total Creatine Kinase 33 (30-135) U/L Troponin I 0.013 (0.01-0.034) ng/mL Total Protein (6.3-8.2) g/dL Albumin (3.5-5.0) g/dL Globulin (1.7-4.1) g/dL Albumin/Globulin Ratio (1.0-2.8) Lipase (23-300) U/L Urine Color Urine Appearance Urine pH (4.5-8.0) Ur Specific [place] (1.000-1.035) Urine Protein (Negative) Urine Glucose (UA) (Negative) g/dL Urine Ketones (NEGATIVE) Urine Occult Blood (Negative) Urine Nitrate (Negative) Urine Bilirubin (NEGATIVE) Urine Urobilinogen (0.2) E.U./dL Ur Leukocyte Esterase (NEGATIVE) Urine RBC (0-5/HPF) Urine WBC (0-5/HPF) Ur Squamous Epith Cells (0-5/HPF) Ur Transition Epith Cell (0-5/HPF) Urine Bacteria (None) Hyaline Casts (None) Ur Culture Indicated? Chlamy pneumoniae PCR (Not Detect) Adenovirus (PCR) (Not Detect) B.parapertussis DNA PCR (Not Detecte) Coronavirus OC43 (PCR) (Not Detect) Coronavirus HKU1 (PCR) (Not Detect) Coronavirus 229E (PCR) (Not Detect) SARS-CoV-2 (PCR) (Not Detecte) Coronavirus NL63 (PCR) (Not Detect) Human Metapneumovir PCR (Not Detect) Influenza Type A (PCR) (Not Detect) Influenza Type B (PCR) (Not Detect) M. pneumoniae (PCR) (Not Detect) Parainfluenza 1 (PCR) (Not Detect) Parainfluenza 2 (PCR) (Not Detect) Parainfluenza 3 (PCR) (Not Detect) Parainfluenza 4 (PCR) (Not Detect) RSV (PCR) (Not Detect) Entero/Rhino (PCR) (Not Detect) Urine Dip Bedside Urine Glucose Negative Bedside Urine Bilirubin - Negative Bedside Urine Ketone +/- 5 Urine Specific [place] 1.010 Bedside Urine Occult Blood - Negative Bedside Urine pH 7.0 Bedside Urine Protein +++ 300 Bedside Urine Urobilinogen - Negative Bedside Urine Nitrite - Negative Bedside Urine Leukocytes +/- 15 Esterase Imaging Data Chest x-ray: Radiologist's Impression: [address] [id number] XRay Report Signed Patient: Colleen Crooks MR#: [id number] : 1940 Acct:[id number] Age/Sex: 83 / F Date of Service: 06/16/23 Loc: ED Accession Number: [id number] Procedure: XR chest 1V Ordering Provider: Ezra Killian MD PROCEDURE: XR CHEST 1V INDICATIONS: chest pain TECHNIQUE: One view of the chest was acquired. COMPARISON: None. FINDINGS: Surgical changes and devices: None. Lungs and pleura: Lungs are clear. No pleural effusions or pneumothorax. Mediastinum: Mediastinal contours appear normal. Heart size is enlarged. Bones and chest wall: No suspicious bony lesions. Overlying soft tissues appear unremarkable. IMPRESSION: Portable chest within normal limits for age. Dictated by: Malika Santamaria M.D. on 06/16/2023 at 9:01 Approved by: Malika Santamaria M.D. on 06/16/2023 at 9:09 [facility] Narrative Medical decision making narrative: Patient here for shortness of breath feeling weak dizzy denies any chest pain just palpitations discomfort. Patient blood pressure noted. She is not taken her diltiazem or carvedilol this morning yet. Patient has history of paroxysmal atrial fibrillation and is on Eliquis. She did see her cardiology office June 07 of this year for routine checkup. Her carvedilol was lowered in half twice a day. She still on the diltiazem and clonidine. Verapamil was discontinued. Patient denies any syncope. Patient says she is had some chills and nausea. No cough or congestion. No urinary complaints. She is felt tired and fatigued. After history and exam CBC CMP troponin EKG chest x-ray carvedilol diltiazem aspirin MDM CC: Palpitations shortness of breath nausea dizzy Complicating co-morbidities: AFib Data collected from: Patient Medical records reviewed: Cardiology office visit June 07, 2023 Differential considered: Includes but not limited to paroxysmal AFib, viral syndrome, STEMI non-STEMI, angina Exam documented above, pertinent findings include: Nontender chest Lab Test results independently reviewed as above. Pertinent findings: WBC 4.9 hemoglobin 12.5 INR 1.2 sodium 137 potassium 3.4 BUN 13 creatinine 1.09 GFR 50 glucose 124 troponin 0.013 x2 Independently reviewed EKG sinus rhythm rate [address] elevation or depression Imaging studies independently reviewed: Chest x-ray no acute finding Consultations: 12:04 p.m.. Spoke with [facility], cardiology, dr Fraire, he has reviewed patient's records from their hospital. Patient would benefit transfer to their facility for heart catheterization. He would like patient started on heparin. 1:25 p.m.. Spoke with [facility], Dr. Qiu, hospitalist, who will admit patient Treatments: Carvedilol diltiazem aspirin, heparin Re-evaluations: 12:05 p.m.. Patient chest pain-free after nitro paste placed here. She developed chest discomfort about a couple hours ago. I did review with her results and my discussion with her cardiology provider/team, she does agree and understand need for transfer to [facility] as we do not have catheterization resources here. Discussion: Appropriate for transfer to [facility] for continuity of care and patient's Cardiology team. Patient chest pain-free. Laboratory studies and imaging are reassuring. Patient has received aspirin and heparin. Diagnosis: Unstable angina Discharge Plan Departure Patient Disposition: [facility] Clinical Impression: Angina pectoris, unstable Prescriptions: No Action vitamin B complex [B Complex 1] tablet 1 tab PO DAILY rosuvastatin 5 mg tablet 5 mg PO DAILY Qty: 90 3RF fluticasone propion-salmeterol [Wixela Inhub] 250-50 mcg/dose blister with device 1 inh inhalation BID Qty: 180 3RF Eliquis 5 mg tablet 5 mg PO BID diltiazem HCl 180 mg capsule,extended release 24 hr 180 mg PO DAILY Spiriva Respimat 2.5 mcg/actuation mist 2 puff INHALATION DAILY Qty: 4 11RF irbesartan 150 mg tablet 150 mg PO DAILY Qty: 90 3RF clonidine 0.1 mg/24 hr patch weekly See Rx Instructions .ROUTE .COMPLEX Qty: 12 3RF Dose Instruction: APPLY 1 PATCH TOPICALLY TO THE SKIN EVERY WEEK FOR BLOOD PRESSURE Rx Instructions: APPLY 1 PATCH TOPICALLY TO THE SKIN EVERY WEEK FOR BLOOD PRESSURE magnesium 250 mg tablet 250 mg PO DAILY potassium citrate 99 mg capsule PO furosemide 20 mg tablet 20 mg PO DAILY Patient Comments: TAKE ONE TABLET BY MOUTH DAILY albuterol sulfate 90 mcg/actuation HFA aerosol inhaler 2 puff inhalation ONCE isosorbide mononitrate 30 mg tablet extended release 24 hr 30 mg PO DAILY carvedilol 12.5 mg tablet 12.5 mg PO BID Rx Instructions: must administer with a meal/food cetirizine 10 mg tablet 10 mg PO DAILY PRN (Reason: congestion) Qty: 30 0RF Referrals: Anum Quispe DO [Primary Care Provider] -
--- NOTE | 2023-06-16 08:51 | PC.NURSE ---
Provider informed immediately of patient high blood pressure. Patient reports not taking any of her prescribed medication this morning. Provider ordered patient home dose of diltiazem and carvedilol and both were administered.
[2023-06-16 09:00] LABS: Alanine Aminotransferase 20 IU/L (<35); Albumin 4.3 g/dL (3.5-5.0); Albumin Globulin Ratio 1.3 (1.0-2.8); Alkaline Phosphatase 137 U/L (38-126); Aspartate Aminotransferase 35 IU/L (14-36); BUN Creatinine Ratio 11.9 (6-22); Blood Urea Nitrogen 13 mg/dL (7-17); Calcium 9.9 mg/dL (8.4-10.2); Carbon Dioxide 30 mmol/L (22-32); Chloride 98 mmol/L (98-107); Creatine Kinase 40 U/L (30-135); Estimated Glomerular Filt Rate 50 mL/min (>60); Globulin 3.2 g/dL (1.7-4.1); Glucose 124 mg/dL (80-110); HEMOLYSIS < 15 (0-50); Lipase 89 U/L (23-300); Magnesium 1.8 mg/dL (1.6-2.3); Potassium 3.4 mmol/L (3.4-5.1); Sodium 137 mmol/L (137-145); Total Protein 7.5 g/dL (6.3-8.2)
[2023-06-16 09:01] LABS: INR 1.2 (0.9-1.3); Prothrombin Time 14.2 SECONDS (10.1-12.7)
[2023-06-16 09:04] LABS: PTT Partial Thromboplastin Tim 34 SECONDS (26-36)
[2023-06-16 09:13] LABS: Troponin I 0.013 ng/mL (0.01-0.034)
[2023-06-16 10:15] LABS: Adenovirus Not Detected (Not Detect); B. parapertussis Not Detected (Not Detecte); Bordetella pertussis Not Detected (Not Detect); Chlamydophila pneumoniae Not Detected (Not Detect); Coronavirus 229E Not Detected (Not Detect); Coronavirus HKU1 Not Detected (Not Detect); Coronavirus NL 63 Not Detected (Not Detect); Coronavirus OC43 Not Detected (Not Detect); Human Metapneumovirus Not Detected (Not Detect); Human Rhinovirus/Enterovirus Not Detected (Not Detect); Influenza A Not Detected (Not Detect); Influenza B Not Detected (Not Detect); Mycoplasma pneumoniae Not Detected (Not Detect); Parainfluenza Virus 1 Not Detected (Not Detect); Parainfluenza Virus 2 Not Detected (Not Detect); Parainfluenza Virus 3 Not Detected (Not Detect); Parainfluenza Virus 4 Not Detected (Not Detect); Respiratory Syncytial Virus Not Detected (Not Detect); SARS- CoV-2 Not Detected (Not Detecte)
[2023-06-16] MEDS: NITROGLYCERIN OINT 1 INCH/GM OINT...G. 0.5 INCH TOP (10:57)
--- NOTE | 2023-06-16 10:59 | PC.NURSE ---
Patient informed nurse that she was having chest pressure at 5/10. Patient has known prescription for nitroglycerin. This RN informed provider and got verbal order for 1/2inch nitro paste. Order placed and medication placed on patient.
[2023-06-16 11:27] LABS: Appearance Urine UA CLEAR; Bilirubin Urine UA NEGATIVE (NEGATIVE); Color Urine UA YELLOW; Glucose Urine UA NEGATIVE (Negative); Ketones Urine UA 1+ (NEGATIVE); Leukocyte Esterase Urine UA TRACE (NEGATIVE); Nitrite Urine UA NEGATIVE (Negative); Occult Blood Urine UA NEGATIVE (Negative); Protein Urine UA 3+ (Negative); Urobilinogen Urine UA 0.2 E.U./dL (0.2)
[2023-06-16 11:41] LABS: Bacteria Urine None Seen; Culture Indicated Urine Specimen Cultured; Hyaline Casts Urine 1-5/LPF; RBC Urine None Seen (0-5/HPF); Squamous Epithelial Cell Urine 5-10 /HPF (0-5/HPF); Transitional Epi Cells Urine 1-5/HPF (0-5/HPF); WBC Urine 1-5/HPF (0-5/HPF)
[2023-06-16 12:33] LABS: Creatine Kinase 33 U/L (30-135)
[2023-06-16] MEDS: HEPARIN DRIP 25,000 UNIT/500 ML IV.SOLN 20.031 UNIT IV (12:40)
[2023-06-16 12:46] LABS: Troponin I 0.013 ng/mL (0.01-0.034)
--- NOTE | 2023-06-16 16:11 | PC.NURSE ---
Pt transferred with heparin gtt, to [facility]
== END 2023-06-16 16:10 | disposition short-term general hospital (02) ==
PROVIDERS: Emergency Provider Emergency Medicine; PCP Family Medicine
DX: I20.0 Unstable angina (principal); Z79.01 Long term (current) use of anticoagulants; Z79.899 Other long term (current) drug therapy
CPT/HCPCS: 36415; 71045; 80053; 81001; 81003; 82550; 83690; 83735; 84484; 85025; 85610; 85730; 87086; 87633; 93005; 96365; 96366; 99284; J1644

== ENCOUNTER → 2023-12-21 14:47 | Outpatient (CLI) | payer MEDICARE, BC, SELFPAY ==
[2023-12-21 15:20] LABS: Add Manual Diff / Slide Review NO; Basophils Absolute Auto 100 /uL (0-100); Basophils Percent Auto 1.4 % (0-2); Eosinophils Absolute Auto 200 /uL (0-450); Eosinophils Percent Auto 2.8 % (2-4); Hematocrit 34.7 % (36-46); Hemoglobin 11.2 g/dL (12.0-16.0); Lymphocytes Absolute Auto 1400 /uL (1100-4500); Lymphocytes Percent Auto 23.8 % (25-40); Mean Corpuscular HGB Conc 32.4 % (30-36); Mean Corpuscular Hemoglobin 27.3 PG (26-34); Mean Corpuscular Volume 84.3 fL (80-100); Monocytes Absolute Auto 600 /uL (0-900); Monocytes Percent Auto 9.6 % (3-14); Neutrophils Absolute Auto 3800 /uL (1500-7000); Neutrophils Percent Auto 62.4 % (50-75); Platelet Count 259 X10^3/uL (150-400); Red Blood Cell Count 4.12 X10^6/uL (4.0-5.2); Red Cell Distribution Width 16.4 % (11.6-14.8); White Blood Cell Count 6.1 X10^3/uL (4.5-11.0)
[2023-12-21 15:33] LABS: Hemoglobin A1C% w Est Avg Glu 5.5 % (4.0-6.0)
[2023-12-21 16:03] LABS: Alanine Aminotransferase 14 IU/L (<35); Albumin 4.2 g/dL (3.5-5.0); Albumin Globulin Ratio 1.6 (1.0-2.8); Alkaline Phosphatase 96 U/L (38-126); Aspartate Aminotransferase 24 IU/L (14-36); BUN Creatinine Ratio 17.7 (6-22); Bilirubin Total 0.6 mg/dL (0.2-1.3); Blood Urea Nitrogen 26 mg/dL (7-17); Calcium 9.7 mg/dL (8.4-10.2); Carbon Dioxide 30 mmol/L (22-32); Chloride 101 mmol/L (98-107); Estimated Glomerular Filt Rate 35 mL/min (>60); Globulin 2.6 g/dL (1.7-4.1); Glucose 105 mg/dL (80-110); HEMOLYSIS < 15 (0-50); Potassium 4.3 mmol/L (3.4-5.1); Sodium 137 mmol/L (137-145); Total Protein 6.8 g/dL (6.3-8.2)
[2023-12-21 16:27] LABS: TSH w/ Reflex to FT4 1.14 uIU/mL (0.47-4.68)
== END ==
PROVIDERS: PCP Family Medicine; Referring Provider Family Medicine; Visit Provider Family Medicine
DX: I10 Essential (primary) hypertension (principal); J44.9 Chronic obstructive pulmonary disease, unspecified; G47.33 Obstructive sleep apnea (adult) (pediatric); R42 Dizziness and giddiness
CPT/HCPCS: 36415; 80053; 83036; 84443; 85025

== ENCOUNTER 2024-01-19 12:30 | Outpatient (RCR) | payer MEDICARE, BC, SELFPAY | END 2024-01-19 14:30 | LOC: PUL 12:30 | PROVIDERS: PCP Family Medicine; Referring Provider Internal Medicine Critical Care Medicine; Visit Provider Internal Medicine Critical Care Medicine | DX: J44.9 Chronic obstructive pulmonary disease, unspecified (principal) | CPT/HCPCS: 94626 ==

== ENCOUNTER → 2024-03-11 16:21 | Outpatient (CLI) | payer MEDICARE, BC, SELFPAY | PROVIDERS: PCP Family Medicine; Referring Provider Physician Assistant Surgical; Visit Provider Physician Assistant Surgical | DX: R10.9 Unspecified abdominal pain (principal) | CPT/HCPCS: 87086 ==

== ENCOUNTER → 2024-03-14 11:55 | Outpatient (CLI) | payer MEDICARE, BC, SELFPAY ==
--- NOTE | 2024-03-14 11:57 | DI.US.S_ITS ---
LIMITED ULTRASOUND OF RIGHT BREAST: 03/14/2024 CLINICAL: Follow up from addtional views. Comparison is made to exam dated: 03/14/2024 mammogram - [facility]. Color flow and real-time ultrasound of the right breast 11 o'clock, and retroareolar regions were performed. Rodriguez scale images of the real-time examination were reviewed. There is a 0.4 cm x 0.3 cm x 0.2 cm oval cyst in the right breast at 11 o'clock in the retroareolar region. This oval cyst is hypoechoic. This correlates as palpated but was not seen on the prior mammogram. Color flow imaging demonstrates that there is no vascularity present. IMPRESSION: PROBABLY BENIGN The 0.4 cm complicated cyst in the right breast is probably benign. A follow-up ultrasound in 6 months is recommended to demonstrate stability. Exam findings were conveyed to the patient. Patient is advised to monitor for significant change. Clinical follow-up as needed. This exam was interpreted at Station ID: [id number]. Electronically Signed By: Valdez Ag M.D. slc/:03/14/2024 13:13:42 letter sent: Followup Recommended Ultrasound BI-RADS: 3 Probably benign
--- NOTE | 2024-03-14 11:57 | DI.MG.S_ITS ---
BILATERAL DIGITAL DIAGNOSTIC MAMMOGRAM 3D/2D: 03/14/2024 CLINICAL: Right breast lump. No prior exams were available for comparison. Both breasts are heterogeneously dense, which may obscure small masses (category c / 51-75% glandular tissue). No significant masses, calcifications, or other findings are seen in either breast. No mass in the region of the right breast palpable abnormality seen. Post-operative finding in the left breast. IMPRESSION: INCOMPLETE: NEEDS ADDITIONAL IMAGING EVALUATION No mammographic evidence of malignancy. -A targeted ultrasound is recommended for the right breast palpable abnormality and will immediately follow. Post-operative finding in the left breast. -Recommend comparison with prior imaging when available. This exam was interpreted at Station ID: [id number]. NOTE: For mammograms, a report in lay terms will be sent to the patient. Approximately 15% of breast malignancies will not be visualized mammographically. In the management of a palpable breast mass, a negative mammogram must not discourage biopsy of a clinically suspicious lesion. Electronically Signed By: Valdez Ag M.D. slc/:03/14/2024 12:53:53 ACR BI-RADS Category 0: Incomplete [id number]
== END ==
PROVIDERS: PCP Family Medicine; Referring Provider Family Medicine; Visit Provider Family Medicine
DX: R92.333 Mammographic heterogeneous density, bilateral breasts (principal); N63.15 Unspecified lump in the right breast, overlapping quadrants; N60.01 Solitary cyst of right breast; R92.2 Inconclusive mammogram
CPT/HCPCS: 76642; 77066; G0279

== ENCOUNTER → 2024-04-30 09:21 | Outpatient (CLI) | payer MEDICARE, BC, SELFPAY ==
[2024-04-30 10:31] LABS: Add Manual Diff / Slide Review NO; Basophils Absolute Auto 100 /uL (0-100); Basophils Percent Auto 1.2 % (0-2); Eosinophils Absolute Auto 200 /uL (0-450); Eosinophils Percent Auto 3.3 % (2-4); Hematocrit 33.3 % (36-46); Hemoglobin 10.8 g/dL (12.0-16.0); Lymphocytes Absolute Auto 1100 /uL (1100-4500); Lymphocytes Percent Auto 19.9 % (25-40); Mean Corpuscular HGB Conc 32.5 % (30-36); Mean Corpuscular Hemoglobin 27.9 PG (26-34); Mean Corpuscular Volume 85.8 fL (80-100); Monocytes Absolute Auto 700 /uL (0-900); Monocytes Percent Auto 13.1 % (3-14); Neutrophils Absolute Auto 3400 /uL (1500-7000); Neutrophils Percent Auto 62.5 % (50-75); Platelet Count 223 X10^3/uL (150-400); Red Blood Cell Count 3.89 X10^6/uL (4.0-5.2); Red Cell Distribution Width 18.3 % (11.6-14.8); White Blood Cell Count 5.4 X10^3/uL (4.5-11.0)
[2024-04-30 11:23] LABS: Blood Urea Nitrogen 24 mg/dL (7-17); Calcium 10.1 mg/dL (8.4-10.2); Carbon Dioxide 32 mmol/L (22-32); Chloride 100 mmol/L (98-107); Estimated Glomerular Filt Rate 34 mL/min (>60); Glucose 112 mg/dL (80-110); HEMOLYSIS < 15 (0-50); Potassium 3.8 mmol/L (3.4-5.1); Sodium 138 mmol/L (137-145)
== END ==
LOC: LAB 09:22
PROVIDERS: PCP Family Medicine; Referring Provider Nurse Practitioner Family; Visit Provider Nurse Practitioner Family
DX: I48.91 Unspecified atrial fibrillation (principal)
CPT/HCPCS: 36415; 80048; 85025

== ENCOUNTER 2024-05-01 10:08 | Emergency (ER) | payer MEDICARE, BC, SELFPAY ==
[2024-05-01] VITALS (10 sets, daily range): BP systolic 182–197; BP diastolic 81–105; PULSE 79–97; RESP 18–25; TEMP 36.6; O2SAT 92–96; BMI 30.7
--- NOTE | 2024-05-01 10:13 | EKG_ITS ---
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
--- NOTE | 2024-05-01 10:16 | DI.CT.S_ITS ---
PROCEDURE: CT CERVICAL SPINE WO CON INDICATIONS: fall, hit forehead on countertop, on eliquis TECHNIQUE: Noncontrast 3 mm thick sections acquired from the skull base to the T4 level. Sagittal and coronal reformats were then constructed. For radiation dose reduction, the following was used: automated exposure control, adjustment of mA and/or kV according to patient size. COMPARISON: None. FINDINGS: Image quality: Excellent. Bones: No fractures or dislocations. 2 millimeter anterolisthesis of C5 on C6, C6 on C7 and C7 on T1 is seen. Degenerative endplate changes and bilateral uncovertebral hypertrophic changes are noted throughout cervical spine with mild central canal stenosis, no significant neural foraminal narrowing. Visualized superior ribs are intact. Soft tissues: Prevertebral soft tissues are normal in thickness. No paravertebral hematomas. No apical pneumothoraces. IMPRESSION: 1. No acute cervical spine fracture or dislocation. 2. 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 Dictated by: Vikram Corral M.D. on 05/01/2024 at 11:02 Approved by: Vikram Corral M.D. on 05/01/2024 at 11:06
--- NOTE | 2024-05-01 10:17 | ED.TRAUMA ---
HPI - Trauma General Chief Complaint: Trauma Stated Complaint: fall hit head Time Seen by Provider: 05/01/24 10:11 Source: patient, EMS, RN notes reviewed and old records reviewed Mode of arrival: EMS Limitations: no limitations History of Present Illness HPI narrative: 83-year-old female history of atrial fibrillation on Eliquis, carvedilol, hypertension, dyslipidemia, CKD, COPD who presents with complaint of fall and hitting her forehead. Patient states she was leaving her bathroom she turned to flip the lights she lost her balance and fell onto her knees and then hit her forehead on the counter top of the sink. Patient states no loss of consciousness denies any headache or neck pain currently. She states she just sort of generally felt weak afterwards she states her knees hurt but she is able to move them. She denies any back pain, no chest pain or shortness of breath no nausea or vomiting no dizziness. She denied any GI or urinary symptoms no bowel or bladder incontinence. No numbness tingling or weakness. Patient was able to scoot herself to her bed, sit up onto the bed after pushing herself up. She states she has been able to walk since. She notes she was supposed to stop her Eliquis this evening because she was supposed to have a cardiac ablation tomorrow for her atrial fibrillation. Former smoker, occasional alcohol, no recreational drugs. Dr. Quispe is her primary care physician. Related Data Home Medications Medication Instructions Recorded Confirmed vitamin B complex (B Complex 1 1 tab PO DAILY 05/25/18 02/17/24 tablet) magnesium 250 mg tablet 250 mg PO DAILY 06/08/22 02/17/24 potassium citrate 99 mg capsule mg PO 06/08/22 02/17/24 apixaban 5 mg tablet (Eliquis) 5 mg PO BID 09/08/22 02/17/24 albuterol sulfate 90 mcg/actuation 2 puff inhalation ONCE 02/25/23 02/17/24 aerosol inhaler furosemide 20 mg tablet 20 mg PO DAILY 02/25/23 02/17/24 nitroglycerin 0.4 mg sublingual mg sublingual 08/24/23 02/17/24 tablet omeprazole 20 mg capsule,delayed 20 mg PO DAILY 08/24/23 02/17/24 release Previous Rx's Medication Instructions Recorded rosuvastatin 5 mg tablet 5 mg PO DAILY #90 tabs 11/23/19 cetirizine 10 mg tablet 10 mg PO DAILY PRN congestion #30 07/21/22 tabs fluticasone 250 mcg-salmeterol 50 1 ea inhalation BID #180 ea 09/19/23 mcg/dose blistr powdr for inhalation (Wixela Inhub) clonidine HCl 0.1 mg tablet 0.1 mg PO BID #60 tabs 11/23/23 diltiazem HCl 240 mg capsule,24 240 mg PO DAILY #90 caps 11/23/23 hr,extended release carvedilol 3.125 mg tablet 3.125 mg PO BID blood pressure 12/21/23 #180 tabs bipap #1 ea 01/06/24 tiotropium bromide 2.5 2 puff inhalation DAILY #4 grams 01/30/24 mcg/actuation mist for inhalation (Spiriva Respimat) irbesartan 150 mg tablet 150 mg PO DAILY #90 tabs 04/30/24 Allergies Allergy/AdvReac Type Severity Reaction Status Date / Time No Known Drug Allergies Allergy Verified 03/11/24 16:17 Review of Systems Review of Systems ROS Unobtainable: All systems reviewed & are unremarkable except as noted in HPI and below Patient History Medical History Cyst of right breast Grieving Encounter for initial annual wellness visit (AWV) in Medicare patient CKD (chronic kidney disease) stage 3, GFR 30-59 ml/min Atrial fibrillation, persistent Insomnia Osteopenia Measles Herpes Partial blindness (~2009) Myocardial infarction (~2020) Chicken pox Mumps Fractures (2014) Shoulder pain (2015) Depression COPD (chronic obstructive pulmonary disease) (2013) Sleep apnea (2013) Osteoarthritis (~1979) Eczema (2008) Macular degeneration (~2004) Hypertension (1983) Breast cancer (2012) Family History Father Stroke Mother Cancer Brother Cancer Sister No problems noted. Social History Smoking Status: Former smoker Smoking Status: Former smoker alcohol intake frequency: holidays/special occasions only Substance Use Type: does not use Exam Narrative Exam Narrative: GEN: Patient appears in mild distress. HEAD: No evidence of trauma, no raccoon/Hugo sign. NECK: Nontender, painless range of motion, trachea midline Negative Nexus criteria, no midline line tenderness, distracting injury, altered mental status, neuro deficit, recent EtOH. EYES: PERRLA, EOMI ENT: External inspection normal, trachea is midline, TM's are normal no hemotypanum, Nares are clear, no septal hematoma, no dental or oral injury, airway is normal and with normal occlusion, No bony tenderness RESP: Chest is nontender and has symmetric movement, no ecchymosis, breath sounds are normal no crackles, wheezes or rales CVS: Heart sounds are normal, no murmur noted, No JVD. ABG/GI: Nontender, soft, normal bowel sounds, no distention, no organomegaly, pelvic rock is negative NEURO: Oriented AOx3, neuro is grossly intact, sensation and motor is normal all 4 extremities moving, cranial nerves II through XII are intact, GCS is 15 PSYCH: Normal mood and affect SKIN: Intact, warm and dry, no crepitus and without decubitus BACK: No CVA tenderness, no vertebral tenderness, no step-off's, no crepitus EXT: Atraumatic, hips are nontender, no pedal edema, normal color and temperature, normal range of motion of extremities with normal tendon exam, 2+ pulses in all four extremities Initial Vital Signs Initial Vital Signs: Vital Signs Temperature 97.9 F 05/01/24 10:09 Pulse Rate 88 05/01/24 10:09 Respiratory Rate 18 05/01/24 10:09 Blood Pressure 195/105 H 05/01/24 10:09 Pulse Oximetry 94 05/01/24 10:09 Oxygen Delivery Method Room Air 05/01/24 10:[address] Head Rule Age <16 years old: No Patient on blood thinners: Yes Seizure after injury: No Exclusion: Patient meets exclusion criteria GCS < 15 at 2 hr post trauma: No Suspected open or depressed skull fracture: No Any sign of basilar skull fracture (hemotympanum, raccoon eyes, Hugo's sign, CSF kevin-/rhinorrhea): No Two or more episodes of vomiting: No Age greater or equal to 65 years: Yes Retrograde amnesia to the event greater or equal to 30 min: No Dangerous Mechanism (pedestrian vs. mv, occupant ejected from mv, fall from >3 ft or > 5 stairs): No Recommendation: Consider CT. The [place] Head CT Rule cannot rule out need for Imaging. GCS [place] coma scale eye opening: Spontaneous [place] coma scale verbal response: Orientated [place] coma scale motor response: Obey commands [place] coma scale total score: 15 Nexus Score for C-Spine Focal Neurologic deficit present: No Midline spinal tenderness present: No Altered level of conciousness present: No Intoxication present: No Distracting Injury Present: No Nexus Criteria for C-spine: 0 Course Orders Ordered: ED Orders 05/01/24 10:13 EKG-12 Lead Routine 05/01/24 10:16 CT cervical spine wo con Stat CT head/brain wo con Stat Vital Signs Vital signs: Vital Signs - 8 hr 05/01/24 10:09 05/01/24 10:11 05/01/24 10:30 Temperature 97.9 F Pulse Rate 88 92 H 82 Respiratory Rate 18 18 Blood Pressure 195/105 H Pulse Oximetry 94 93 93 Oxygen Delivery Method Room Air 05/01/24 10:31 05/01/24 10:31 05/01/24 10:47 Temperature Pulse Rate 84 81 Respiratory Rate 21 23 Blood Pressure 194/89 H Pulse Oximetry 92 96 Oxygen Delivery Method 05/01/24 11:00 05/01/24 11:01 05/01/24 11:01 Temperature Pulse Rate 79 84 Respiratory Rate 19 22 Blood Pressure 197/84 H Pulse Oximetry 93 94 Oxygen Delivery Method MDM - Trauma Imaging Data CT scan - head: Radiologist's Impression: Bone,Colleen P??83??F??1940 ? Allergy/Adv: No Known Drug Allergies Close Head CT (Signed) Vikram Corral - 05/01/[address] (Signed) Vikram Corral - 05/01/24 Mammogram Diagnostic (Signed) Call,Valdez - 03/14/24 Breast Ultrasound (Signed) Call,03/14/24 Outside Echo 06/17/23 Chest X-Ray (Signed) Malika Santamaria - 06/16/23 PFT Result 02/01/23 Outside Echo 12/08/22 KUB X-Ray (Signed) Gopi Lam - 10/04/22 PFT Result 02/09/[address] [address] [address] Scan Report Signed Patient: Colleen Crooks MR#: [id number] : 1940 Acct:[id number] Age/Sex: 83 / F Date of Service: 05/01/24 Loc: ED Accession Number: [id number] Procedure: CT head/brain wo con Ordering Provider: Madina Hughes D.O. PROCEDURE: CT HEAD/BRAIN WO CON INDICATIONS: fall, hit forehead on countertop, on eliquis TECHNIQUE: Noncontrast 4.5 mm thick angled axial sections acquired from the foramen magnum to the vertex, with coronal and sagittal reformats. For radiation dose reduction, the following was used: automated exposure control, adjustment of mA and/or kV according to patient size. COMPARISON: None. FINDINGS: Image quality: Diagnostic. CSF spaces: Basal cisterns are patent. No extra-axial fluid collections. The ventricles are symmetric in size and shape. Brain: No intracranial bleeds or masses. There is cerebral volume loss for age, with resultant ventricular and sulcal prominence. There are periventricular and deep white matter chronic small vessel ischemic changes. There is intracranial internal carotid artery atherosclerosis. Skull and face: Calvarium and visualized facial bones appear intact, without suspicious lesions. Sinuses: Visualized sinuses and mastoids are clear. IMPRESSION: 1. No acute intracranial pathology. 2. Age related volume loss and extensive white matter chronic small vessel ischemic changes. 3. No gross acute skull fracture. Dictated by: Vikram Corral M.D. on 05/01/2024 at 11:02 Approved by: Vikram Corral M.D. on 05/01/2024 at 11:02 CT - cervical spine: Radiologist's Impression: Colleen Crooks??83??F??1940 ? Allergy/Adv: No Known Drug Allergies Close Head CT (Signed) Vikram Corral - 05/01/[address] (Signed) Vikram Corral - 05/01/24 Mammogram Diagnostic (Signed) Call,Valdez - 03/14/24 Breast Ultrasound (Signed) Call,Valdez - 03/14/24 Outside Echo 06/17/23 Chest X-Ray (Signed) Malika Santamaria - 06/16/23 PFT Result 02/01/23 Outside Echo 12/08/22 KUB X-Ray (Signed) Gopi Lam - 10/04/22 PFT Result 02/09/19 [facility]?[place] [address] CT Scan Report Signed Patient: Colleen Crooks MR#: [id number] : 1940 Acct:[id number] Age/Sex: 83 / F Date of Service: 05/01/24 Loc: ED Accession Number: [id number] Procedure: CT head/brain wo con Ordering Provider: Madina Hughes D.O. PROCEDURE: CT HEAD/BRAIN WO CON INDICATIONS: fall, hit forehead on countertop, on eliquis TECHNIQUE: Noncontrast 4.5 mm thick angled axial sections acquired from the foramen magnum to the vertex, with coronal and sagittal reformats. For radiation dose reduction, the following was used: automated exposure control, adjustment of mA and/or kV according to patient size. COMPARISON: None. FINDINGS: Image quality: Diagnostic. CSF spaces: Basal cisterns are patent. No extra-axial fluid collections. The ventricles are symmetric in size and shape. Brain: No intracranial bleeds or masses. There is cerebral volume loss for age, with resultant ventricular and sulcal prominence. There are periventricular and deep white matter chronic small vessel ischemic changes. There is intracranial internal carotid artery atherosclerosis. Skull and face: Calvarium and visualized facial bones appear intact, without suspicious lesions. Sinuses: Visualized sinuses and mastoids are clear. IMPRESSION: 1. No acute intracranial pathology. 2. Age related volume loss and extensive white matter chronic small vessel ischemic changes. 3. No gross acute skull fracture. Dictated by: Vikram Corral M.D. on 05/01/2024 at 11:02 Approved by: Vikram Corral M.D. on 05/01/2024 at 11:02 ECG Data Attestation: I personally reviewed and interpreted this ECG as follows: Prior ECG tracings: available for review Interpretation: AFib rate of 91 QRS of 134 QTC of 511, irregularly irregular with a left axis deviation. Patient has prior from 06/16/[address] segments although patient on that EKG is sinus rhythm and not AFib. MDM Narrative Medical decision making narrative: 83-year-old female with mechanical ground level onto her knees, states no pain or injury to the knees themselves has been able to walk but did hit her forehead she is anticoagulants Eliquis. Based on her age, type of hyperextension injury although she has no neck pain head CT and CT C-spine were obtained Head CT no acute change CT C-spine degenerative changes no fracture or dislocation. EKG shows AFib rate controlled at 91. Patient has been ambulated in the department without issue felt appropriate for discharge. She is already going to hold her Eliquis this evening. Asked that she share that she did hit her head with her cloth bolt bander as she was scheduled for an ablation tomorrow. Discharge Plan Departure Patient Disposition: Home Clinical Impression: Head injury, Fall Activity Restrictions/Additional Instructions: Follow up for recheck as needed. Let your it specialist know that you did hit your head but you had imaging today that was reassuring. Head CT shows no acute changes, your cervical spine CT does show degenerative changes but no fractures or breaks. Please return for severe headaches, new or neck or back pain, any new numbness, tingling or weakness, passing out, persistent vomiting, difficulty ambulating or other new or concerning changes. Prescriptions: No Action vitamin B complex [B Complex 1] tablet 1 tab PO DAILY rosuvastatin 5 mg tablet 5 mg PO DAILY Qty: 90 3RF Eliquis 5 mg tablet 5 mg PO BID fluticasone propion-salmeterol [Wixela Inhub] 250-50 mcg/dose blister with device 1 ea inhalation BID Qty: 180 3RF (DME) bipap See Rx Instructions .Route .MEDSUPPLY Qty: 1 0RF Rx Instructions: use As directed. IPAP 10 cmH2O EPAP 4 cm H2O -provide mask, tubing, filters, supplies needed please Spiriva Respimat 2.5 mcg/actuation mist 2 puff INHALATION DAILY Qty: 4 11RF irbesartan 150 mg tablet 150 mg PO DAILY Qty: 90 3RF magnesium 250 mg tablet 250 mg PO DAILY potassium citrate 99 mg capsule PO furosemide 20 mg tablet 20 mg PO DAILY Patient Comments: TAKE ONE TABLET BY MOUTH DAILY albuterol sulfate 90 mcg/actuation HFA aerosol inhaler 2 puff inhalation ONCE omeprazole 20 mg capsule,delayed release(DR/EC) 20 mg PO DAILY nitroglycerin 0.4 mg tablet, sublingual sublingual clonidine HCl 0.1 mg tablet 0.1 mg PO BID Qty: 60 0RF diltiazem HCl 240 mg capsule,extended release 24 hr 240 mg PO DAILY Qty: 90 3RF carvedilol 3.125 mg tablet 3.125 mg PO BID Qty: 180 3RF Rx Instructions: must administer with a meal/food cetirizine 10 mg tablet 10 mg PO DAILY PRN (Reason: congestion) Qty: 30 0RF Referrals: Anum Quispe DO [Primary Care Provider] - Stand Alone Forms: Patient Portal/API
== END 2024-05-01 11:37 | disposition home or self-care (01) ==
PROVIDERS: Emergency Provider Emergency Medicine; PCP Family Medicine; Referring Provider Emergency Medicine
DX: S09.90XA Unspecified injury of head, initial encounter (principal); R40.2410 Glasgow coma scale score 13-15, unspecified time; W18.30XA Fall on same level, unspecified, initial encounter; I48.91 Unspecified atrial fibrillation; Z79.01 Long term (current) use of anticoagulants; I10 Essential (primary) hypertension; E78.5 Hyperlipidemia, unspecified; N18.9 Chronic kidney disease, unspecified; J44.9 Chronic obstructive pulmonary disease, unspecified
CPT/HCPCS: 70450; 72125; 93005; 99284

== ENCOUNTER 2024-06-28 15:09 | Emergency (ER) | payer MEDICARE, BC, SELFPAY ==
[2024-06-28] VITALS (9 sets, daily range): BP systolic 168–221; BP diastolic 78–102; PULSE 72–82; RESP 18–35; TEMP 37.1; O2SAT 91–95; BMI 31.7
--- NOTE | 2024-06-28 15:24 | DI.RAD.S_ITS ---
PROCEDURE: XR CHEST 1V INDICATIONS: chest pain TECHNIQUE: One view of the chest was acquired. COMPARISON: [facility], CR, XR CHEST 1V, 06/16/2023, 8:51. FINDINGS: Surgical changes and devices: Postfusion changes are noted in lumbar spine. Lungs and pleura: Lungs are clear. No pleural effusions or pneumothorax. Mediastinum: Mediastinal contours appear normal. Heart size is normal. Bones and chest wall: No suspicious bony lesions. Overlying soft tissues appear unremarkable. IMPRESSION: No acute cardiopulmonary pathology. Dictated by: Vikram Corral M.D. on 06/28/2024 at 16:47 Approved by: Vikram Corral M.D. on 06/28/2024 at 16:47
--- NOTE | 2024-06-28 15:30 | EKG_ITS ---
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
[2024-06-28 15:53] LABS: Add Manual Diff / Slide Review NO; Basophils Absolute Auto 0 /uL (0-100); Basophils Percent Auto 0.5 % (0-2); Eosinophils Absolute Auto 100 /uL (0-450); Eosinophils Percent Auto 1.3 % (2-4); Hematocrit 33.1 % (36-46); Hemoglobin 10.7 g/dL (12.0-16.0); Lymphocytes Absolute Auto 1000 /uL (1100-4500); Mean Corpuscular HGB Conc 32.2 % (30-36); Mean Corpuscular Hemoglobin 27.4 PG (26-34); Monocytes Absolute Auto 1000 /uL (0-900); Monocytes Percent Auto 10.8 % (3-14); Neutrophils Absolute Auto 6800 /uL (1500-7000); Neutrophils Percent Auto 76.4 % (50-75); Platelet Count 224 X10^3/uL (150-400); Red Blood Cell Count 3.89 X10^6/uL (4.0-5.2); Red Cell Distribution Width 18.5 % (11.6-14.8); White Blood Cell Count 8.9 X10^3/uL (4.5-11.0)
[2024-06-28 16:01] LABS: INR 1.5 (0.9-1.3); Prothrombin Time 16.8 SECONDS (9.4-12.5)
[2024-06-28 16:03] LABS: PTT Partial Thromboplastin Tim 38 SECONDS (25.1-36.5)
[2024-06-28 16:07] LABS: HEMOLYSIS < 15 (0-50)
[2024-06-28 16:13] LABS: Alanine Aminotransferase 17 IU/L (<35); Albumin 3.8 g/dL (3.5-5.0); Albumin Globulin Ratio 1.2 (1.0-2.8); Alkaline Phosphatase 143 U/L (38-126); Aspartate Aminotransferase 29 IU/L (14-36); BUN Creatinine Ratio 14.4 (6-22); Bilirubin Total 0.6 mg/dL (0.2-1.3); Blood Urea Nitrogen 20 mg/dL (7-17); Calcium 9.6 mg/dL (8.4-10.2); Carbon Dioxide 30 mmol/L (22-32); Chloride 100 mmol/L (98-107); Creatine Kinase 36 U/L (30-135); Estimated Glomerular Filt Rate 37 mL/min (>60); Globulin 3.1 g/dL (1.7-4.1); Glucose 113 mg/dL (80-110); Lipase 44 U/L (23-300); Potassium 3.3 mmol/L (3.4-5.1); Sodium 137 mmol/L (137-145); Total Protein 6.9 g/dL (6.3-8.2)
[2024-06-28 16:23] LABS: NT-proBNP (BNP-Adult 18+) 2060 pg/mL (<450)
--- NOTE | 2024-06-28 16:25 | PC.NURSE ---
This RNs first interaction with patient @ 1620, moved from ED hallway bed to room 8.
[2024-06-28 16:26] LABS: Troponin I < 0.012 ng/mL (0.01-0.034)
--- NOTE | 2024-06-28 16:52 | ED_ITS ---
HPI - Chest Pain General Chief Complaint: Chest Pain Stated Complaint: WIC, lt side and chest pains Time Seen by Provider: 06/28/24 16:15 Source: patient Mode of arrival: Wheelchair Limitations: no limitations History of Present Illness HPI narrative: Patient is an 84-year-old female who is here for evaluation of left lower quadrant abdominal pain. She was had the discomfort for the past 2 days. She has had a kidney stone in the past and states this feels similar to that but it is in a different location. She was never had history of diverticulitis. States she was never had a colonoscopy. Does have history of constipation but did take some stool softeners and had a bowel movement 2 days ago but nothing since then. No urinary issues. No fevers. No vomiting. No skin changes. She went to the walk-in clinic. While at the walk-in clinic she stated that she had to very short episodes of midsternal chest pain that was sharp. She was currently asymptomatic. She thinks that it was a anxiety attack. No shortness of breath. No cough. No fevers. No prior abdominal surgeries. Related Data Home Medications Medication Instructions Recorded Confirmed vitamin B complex (B Complex 1 1 tab PO DAILY 05/25/18 05/16/24 tablet) magnesium 250 mg tablet 250 mg PO DAILY 06/08/22 05/16/24 potassium citrate 99 mg capsule mg PO 06/08/22 05/16/24 apixaban 5 mg tablet (Eliquis) 5 mg PO BID 09/08/22 05/16/24 albuterol sulfate 90 mcg/actuation 2 puff inhalation ONCE 02/25/23 05/16/24 aerosol inhaler furosemide 20 mg tablet 20 mg PO DAILY 02/25/23 05/16/24 nitroglycerin 0.4 mg sublingual mg sublingual 08/24/23 05/16/24 tablet omeprazole 20 mg capsule,delayed 20 mg PO DAILY 08/24/23 05/16/24 release amiodarone 200 mg tablet 200 mg PO DAILY 05/16/24 05/16/24 carvedilol 6.25 mg tablet 6.25 mg PO BID 05/16/24 05/16/24 Previous Rx's Medication Instructions Recorded rosuvastatin 5 mg tablet 5 mg PO DAILY #90 tabs 11/23/19 cetirizine 10 mg tablet 10 mg PO DAILY PRN congestion #30 12/07/22 tabs fluticasone 250 mcg-salmeterol 50 1 ea inhalation BID #180 ea 09/19/23 mcg/dose blistr powdr for inhalation (Brendanxgely Inhub) clonidine HCl 0.1 mg tablet 0.1 mg PO BID #60 tabs 11/23/23 diltiazem HCl 240 mg capsule,24 240 mg PO DAILY #90 caps 11/23/23 hr,extended release bipap #1 ea 01/06/24 tiotropium bromide 2.5 2 puff inhalation DAILY #4 grams 01/30/24 mcg/actuation mist for inhalation (Spiriva Respimat) irbesartan 150 mg tablet 150 mg PO DAILY #90 tabs 04/30/24 amoxicillin 875 mg-potassium 1 tab PO TID 10 days #30 tabs 06/28/24 clavulanate 125 mg tablet tramadol 50 mg tablet 50 mg PO BID PRN pain #7 tabs 06/28/24 Allergies Allergy/AdvReac Type Severity Reaction Status Date / Time No Known Drug Allergies Allergy Verified 05/16/24 15:07 Review of Systems Review of Systems ROS Unobtainable: All systems reviewed & are unremarkable except as noted in HPI and below Patient History Medical History Cyst of right breast Grieving Encounter for initial annual wellness visit (AWV) in Medicare patient CKD (chronic kidney disease) stage 3, GFR 30-59 ml/min Atrial fibrillation, persistent Insomnia Osteopenia Measles Herpes Partial blindness (~2009) Myocardial infarction (~2020) Chicken pox Mumps Fractures (2014) Shoulder pain (2015) Depression COPD (chronic obstructive pulmonary disease) (2013) Sleep apnea (2013) Osteoarthritis (~1979) Eczema (2008) Macular degeneration (~2004) Hypertension (1983) Breast cancer (2012) Family History Father Stroke Mother Cancer Brother Cancer Sister No problems noted. Social History Smoking Status: Former smoker Smoking Status: Former smoker alcohol intake frequency: holidays/special occasions only Substance Use Type: does not use Exam Initial Vital Signs Initial Vital Signs: Vital Signs Temperature 98.7 F 06/28/24 15:17 Pulse Rate 82 06/28/24 15:17 Respiratory Rate 18 06/28/24 15:17 Blood Pressure 168/78 H 06/28/24 15:17 Pulse Oximetry 95 06/28/24 15:17 Oxygen Delivery Method Room Air 06/28/24 15:17 Const General: cooperative, comfortable and No ill appearing HENLA Head: normal to inspection and normocephalic Resp Effort & Inspection: normal respiratory effort Auscultation: clear to auscultation bilaterally Cardio Rate: regular rate Rhythm: regular rhythm GI Inspection: normal to inspection and non-distended Palpation: soft, No firm, No guarding and tender (Left-sided abdomen) Back/Spine/Pelvis Back: No CVA tenderness Skin General: no rashes or lesions noted Neuro General: patient alert, patient awake, patient oriented x3 and moves all extremities Extrem General: normal to inspection and capillary refill normal Course Orders Ordered: ED Orders 06/28/24 15:24 XR chest 1V Stat EKG-12 Lead Stat 06/28/24 15:40 Complete Blood Count AUTO DIFF Stat Comprehensive Metabolic Panel Stat Lipase Stat Magnesium Stat NT-proBNP (BNP-Adult 18+) Stat PTT Partial Thromboplastin Christopher Stat Prothrombin Time INR Stat Troponin & CK Cardiac Panel Stat 06/28/24 16:54 CT abdomen pelvis w con Stat Discontinued Medications Amoxicillin/Clavulanate Potassium (Amoxicillin/Clav 875/125 Mg) 1 tab PO NOW ONE Stop: 06/28/24 18:13 Aspirin (Aspirin 81 Mg Chew Tab) 324 mg PO NOW ONE Stop: 06/28/24 15:24 Tramadol HCl (Tramadol 50 Mg Tablet) 50 mg PO NOW ONE Stop: 06/28/24 18:13 Vital Signs Vital signs: Vital Signs - 8 hr 06/28/24 15:17 06/28/24 16:18 06/28/24 16:19 Temperature 98.7 F Pulse Rate 82 75 Respiratory Rate 18 Blood Pressure 168/78 H 195/81 H Pulse Oximetry 95 94 Oxygen Delivery Method Room Air 06/28/24 16:19 06/28/24 16:30 06/28/24 17:00 Temperature Pulse Rate 75 72 74 Respiratory Rate 29 H 35 H 32 H Blood Pressure Pulse Oximetry 93 93 91 Oxygen Delivery Method 06/28/24 17:17 06/28/24 17:17 06/28/24 17:30 Temperature Pulse Rate 80 Respiratory Rate 26 H Blood Pressure 221/102 H 200/88 H Pulse Oximetry 95 Oxygen Delivery Method 06/28/24 17:30 Temperature Pulse Rate 74 Respiratory Rate 21 Blood Pressure Pulse Oximetry 94 Oxygen Delivery Method MDM - Chest Pain Lab Data Attestation: I reviewed the patient's lab results. 06/28/24 15:40 06/28/24 15:40 Labs: Lab Results 06/28/24 Range/Units 15:40 WBC 8.9 (4.5-11.0) X10^3/uL RBC 3.89 L (4.0-5.2) X10^6/uL Hgb 10.7 L (12.0-16.0) g/dL Hct 33.1 L (36-46) % MCV 85.0 (80-100) fL MCH 27.4 (26-34) PG MCHC 32.2 (30-36) % RDW 18.5 H (11.6-14.8) % Plt Count 224 (150-400) X10^3/uL Neut % (Auto) 76.4 H (50-75) % Lymph % (Auto) 11.0 L (25-40) % [place] % (Auto) 10.8 (3-14) % Eos % (Auto) 1.3 L (2-4) % Baso % (Auto) 0.5 (0-2) % Neut # (Auto) 6800 (7326-0037) /uL Lymph # (Auto) 1000 L (4418-5892) /uL [place] # (Auto) 1000 H (0-900) /uL Eos # (Auto) 100 (0-450) /uL Baso # (Auto) 0 (0-100) /uL PT 16.8 H (9.4-12.5) SECONDS INR 1.5 H (0.9-1.3) APTT 38 H (25.1-36.5) SECONDS Sodium 137 (137-145) mmol/L Potassium 3.3 L (3.4-5.1) mmol/L Chloride 100 (98-107) mmol/L Carbon Dioxide 30 (22-32) mmol/L BUN 20 H (7-17) mg/dL Creatinine 1.39 H (0.52-1.04) mg/dL Estimated GFR 37 L (>60) mL/min BUN/Creatinine Ratio 14.4 (6-22) Glucose 113 H (80-110) mg/dL Calcium 9.6 (8.4-10.2) mg/dL Magnesium 2.0 (1.6-2.3) mg/dL Total Bilirubin 0.6 (0.2-1.3) mg/dL AST 29 (14-36) IU/L ALT 17 (<35) IU/L Alkaline Phosphatase 143 H (38-126) U/L Total Creatine Kinase 36 (30-135) U/L Troponin I < 0.012 (0.01-0.034) ng/mL NT-Pro-B Natriuret Pep 2060 H (<450) pg/mL Total Protein 6.9 (6.3-8.2) g/dL Albumin 3.8 (3.5-5.0) g/dL Globulin 3.1 (1.7-4.1) g/dL Albumin/Globulin Ratio 1.2 (1.0-2.8) Lipase 44 (23-300) U/L Imaging Data Chest x-ray: Radiologist's Impression: PROCEDURE: XR CHEST 1V INDICATIONS: chest pain TECHNIQUE: One view of the chest was acquired. COMPARISON: [facility], , XR CHEST 1V, 06/16/2023, 8:51. FINDINGS: Surgical changes and devices: Postfusion changes are noted in lumbar spine. Lungs and pleura: Lungs are clear. No pleural effusions or pneumothorax. Mediastinum: Mediastinal contours appear normal. Heart size is normal. Bones and chest wall: No suspicious bony lesions. Overlying soft tissues appear unremarkable. IMPRESSION: No acute cardiopulmonary pathology. CT scan - abdomen/pelvis: Radiologist's Impression: PROCEDURE: CT ABDOMEN PELVIS W CON INDICATIONS: Left lower quadrant abdominal pain TECHNIQUE: After the administration of intravenous contrast, axial sections acquired from the lung bases to the pubic symphysis. Coronal and sagittal reformats were performed. For radiation dose reduction, the following was used: automated exposure control, adjustment of mA and/or kV according to patient size. COMPARISON: None. FINDINGS: Image quality: Diagnostic. Lower Chest: Bibasilar scattered scarring/atelectasis is seen. Heart size is enlarged, no significant pericardial effusion. ABDOMEN: Liver: No solid mass. Gallbladder: Gallbladder is surgically absent. Biliary ducts: Mild intrahepatic biliary ductal dilatation is seen. There is dilatation of common bile duct measures up to 16 mm in diameter. No calcified common bile duct stone is seen. Pancreas: No ductal dilation. Spleen: Size is within normal limits. Adrenal Glands: No adrenal nodules. Kidneys and Ureters: Lobulated bilateral renal contours with suggestion of bilateral simple appearing renal cysts. Nonobstructing stones are noted in left Kidney measures up to 4 millimeter in size. No hydronephrosis. No solid mass. No complex renal cystic lesion which requires follow up. Stomach and Bowel: There is no evidence of bowel obstruction. Fecal stasis in the colon is seen. No gastric or small bowel wall thickening. Extensive colonic diverticulosis is seen. Appendix is visualized in right lower quadrant and is within normal limits. There is significant wall thickening and pericolonic fat stranding involving mid to distal sigmoid colon in left abdomen cyst consistent with acute diverticulitis. There is no extra luminal air. No drainable abscess collection. Peritoneum: No abnormal intraperitoneal fluid. No free air. Ventral Wall: No significant ventral hernia. Abdominal Nodes: No retroperitoneal or mesenteric adenopathy by size criteria. Vessels: Aorta and inferior vena cava are normal in size. PELVIS: Pelvic Organs: Unremarkable. Bladder: No bladder wall thickening, accounting for underdistention. Pelvic Nodes: No enlarged lymph nodes. Miscellaneous: No inguinal hernias are seen. Bones: No aggressive osseous abnormality. No acute vertebral body compression fracture. Post fusion changes are noted in lumbar spine at L3 through S1 levels. IMPRESSION: 1. Finding is consistent with acute diverticulitis involving mid to distal descending colon in left lower quadrant. No evidence of perforation. No discrete drainable abscess collection. 2. No bowel obstruction. No other area of abnormal bowel wall thickening. No free fluid or free air. Normal appendix. 3. Bilateral renal cysts and nonobstructing left renal calculi. No hydronephrosis or hydroureter. Normal appearing urinary bladder. 4. Prior cholecystectomy. Intrahepatic biliary ductal dilatation and dilatation of common bile duct, no gross calcified common bile duct stone is seen ECG Data Attestation: I personally reviewed and interpreted this ECG as follows: Interpretation: Sinus rhythm Ventricular rate is 77 Left axis deviation Normal QRS No ST T wave changes MDM Narrative Medical decision making narrative: Patient was nontoxic appearing. CT scan shows evidence of an acute diverticulitis without signs of perforation or abscess. She was not vomiting. Will discharge home with antibiotics. First dose was given here in the emergency department. We discussed the diagnoses. Discussed return precautions and follow-up instructions. She understanding and agreement with plan. Discharge Plan Departure Patient Disposition: Home Clinical Impression: Diverticulitis Instructions: DI for Diverticulitis Activity Restrictions/Additional Instructions: I do recommend a bland diet for the next couple days. Take the antibiotics as directed. Contact your primary doctor for a follow-up. Return to the emergency department for new worsening symptoms. Prescriptions: New amoxicillin-pot clavulanate 875-125 mg tablet 1 tab PO TID 10 Days Qty: 30 0RF tramadol 50 mg tablet 50 mg PO BID PRN (Reason: pain) Qty: 7 0RF No Action vitamin B complex [B Complex 1] tablet 1 tab PO DAILY rosuvastatin 5 mg tablet 5 mg PO DAILY Qty: 90 3RF Eliquis 5 mg tablet 5 mg PO BID fluticasone propion-salmeterol [Wixela Inhub] 250-50 mcg/dose blister with device 1 ea inhalation BID Qty: 180 3RF (DME) bipap See Rx Instructions .Route .MEDSUPPLY Qty: 1 0RF Rx Instructions: use As directed. IPAP 10 cmH2O EPAP 4 cm H2O -provide mask, tubing, filters, supplies needed please Spiriva Respimat 2.5 mcg/actuation mist 2 puff INHALATION DAILY Qty: 4 11RF irbesartan 150 mg tablet 150 mg PO DAILY Qty: 90 3RF magnesium 250 mg tablet 250 mg PO DAILY potassium citrate 99 mg capsule PO furosemide 20 mg tablet 20 mg PO DAILY Patient Comments: TAKE ONE TABLET BY MOUTH DAILY albuterol sulfate 90 mcg/actuation HFA aerosol inhaler 2 puff inhalation ONCE omeprazole 20 mg capsule,delayed release(DR/EC) 20 mg PO DAILY nitroglycerin 0.4 mg tablet, sublingual sublingual clonidine HCl 0.1 mg tablet 0.1 mg PO BID Qty: 60 0RF diltiazem HCl 240 mg capsule,extended release 24 hr 240 mg PO DAILY Qty: 90 3RF amiodarone 200 mg tablet 200 mg PO DAILY carvedilol 6.25 mg tablet 6.25 mg PO BID cetirizine 10 mg tablet 10 mg PO DAILY PRN (Reason: congestion) Qty: 30 0RF Referrals: Anum Quispe DO [Primary Care Provider] - Stand Alone Forms: Patient Portal/API/Survey
--- NOTE | 2024-06-28 17:53 | PC.NURSE ---
Pt refusing blood pressure monitoring @ 1750. States our BP cuffs squeeze too tight and she takes her BP at home and does not need it taken here. 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 Physician advised.
[2024-06-28] MEDS: AMOXICILLIN/CLAV 875/125 MG 1 TAB PO (18:21)
[2024-06-28] MEDS: TRAMADOL 50 MG TABLET PO (18:21)
== END 2024-06-28 19:02 | disposition home or self-care (01) ==
PROVIDERS: Emergency Provider Emergency Medicine; PCP Family Medicine
DX: K57.92 Diverticulitis of intestine, part unspecified, without perforation or abscess without bleeding (principal); R07.9 Chest pain, unspecified; R79.89 Other specified abnormal findings of blood chemistry; Z87.442 Personal history of urinary calculi
CPT/HCPCS: 71045; 74177; 80053; 82550; 83690; 83735; 83880; 84484; 85025; 85610; 85730; 93005; 99283; 99284; Q9967

== ENCOUNTER 2024-07-01 21:36 | Emergency (ER) | payer MEDICARE, BC, SELFPAY ==
[2024-07-01] VITALS (10 sets, daily range): BP systolic 121–150; BP diastolic 59–69; PULSE 68–75; RESP 16–18; TEMP 36.6; O2SAT 92–98; BMI 31.2
--- NOTE | 2024-07-01 21:47 | ED_ITS ---
HPI - GI Bleed General Chief complaint: GI Bleed Stated complaint: rectal bleed Time Seen by Provider: 07/01/24 21:38 History of Present Illness HPI Narrative: 84-year-old female with history of atrial fibrillation on Eliquis, CKD, COPD presents by EMS from home for bright red blood per rectum. Patient was seen in the emergency department 06/28 for abdominal pain and was diagnosed with diverticulitis. She was discharged home on Augmentin. Patient states that she has been doing very well at home and seemed to be recovering. This evening patient was getting ready for bed when she felt a ?cardoza? and the urge to have bowel movement. Patient states that she was not able to get to the toilet in time and had a large amount of blood from her rectum. She states that she was soaked through her underwear and 2 pairs of pants and filled the toilet bowl with a large amount of blood. She states that she was able to clean up at home, but felt like another cardoza was coming in called 911. EMS states that patient did have what appeared to be bright red blood around the lid of the toilet bowl. Patient currently denying pain, states that she feels ?drained?. Related Data Home Medications Medication Instructions Recorded Confirmed vitamin B complex (B Complex 1 1 tab PO DAILY 05/25/18 05/16/24 tablet) magnesium 250 mg tablet 250 mg PO DAILY 06/08/22 05/16/24 potassium citrate 99 mg capsule mg PO 06/08/22 05/16/24 apixaban 5 mg tablet (Eliquis) 5 mg PO BID 09/08/22 05/16/24 albuterol sulfate 90 mcg/actuation 2 puff inhalation ONCE 02/25/23 05/16/24 aerosol inhaler furosemide 20 mg tablet 20 mg PO DAILY 02/25/23 05/16/24 nitroglycerin 0.4 mg sublingual mg sublingual 08/24/23 05/16/24 tablet omeprazole 20 mg capsule,delayed 20 mg PO DAILY 08/24/23 05/16/24 release amiodarone 200 mg tablet 200 mg PO DAILY 05/16/24 05/16/24 carvedilol 6.25 mg tablet 6.25 mg PO BID 05/16/24 05/16/24 Previous Rx's Medication Instructions Recorded rosuvastatin 5 mg tablet 5 mg PO DAILY #90 tabs 11/23/19 cetirizine 10 mg tablet 10 mg PO DAILY PRN congestion #30 07/21/22 tabs fluticasone 250 mcg-salmeterol 50 1 ea inhalation BID #180 ea 09/19/23 mcg/dose blistr powdr for inhalation (Wixela Inhub) clonidine HCl 0.1 mg tablet 0.1 mg PO BID #60 tabs 11/23/23 diltiazem HCl 240 mg capsule,24 240 mg PO DAILY #90 caps 11/23/23 hr,extended release bipap #1 ea 01/06/24 tiotropium bromide 2.5 2 puff inhalation DAILY #4 grams 01/30/24 mcg/actuation mist for inhalation (Spiriva Respimat) irbesartan 150 mg tablet 150 mg PO DAILY #90 tabs 04/30/24 amoxicillin 875 mg-potassium 1 tab PO TID 10 days #30 tabs 06/28/24 clavulanate 125 mg tablet tramadol 50 mg tablet 50 mg PO BID PRN pain #7 tabs 06/28/24 Allergies Allergy/AdvReac Type Severity Reaction Status Date / Time No Known Drug Allergies Allergy Verified 05/16/24 15:07 Patient History Medical History Cyst of right breast Grieving Encounter for initial annual wellness visit (AWV) in Medicare patient CKD (chronic kidney disease) stage 3, GFR 30-59 ml/min Atrial fibrillation, persistent Insomnia Osteopenia Measles Herpes Partial blindness (~2009) Myocardial infarction (~2020) Chicken pox Mumps Fractures (2014) Shoulder pain (2015) Depression COPD (chronic obstructive pulmonary disease) (2013) Sleep apnea (2013) Osteoarthritis (~1979) Eczema (2008) Macular degeneration (~2004) Hypertension (1983) Breast cancer (2012) Family History Father Stroke Mother Cancer Brother Cancer Sister No problems noted. Social History Smoking Status: Former smoker Smoking Status: Former smoker alcohol intake frequency: holidays/special occasions only Substance Use Type: does not use Exam Initial Vital Signs Initial Vital Signs: Vital Signs Pulse Oximetry 98 07/01/24 21:40 Const: Awake, alert, ill-appearing, nontoxic Cardiac: regular rate, regular rhythm RESP: unlabored, clear bilaterally, no wheezing GI: Soft, nontender, nondistended Rectal: Pattern And Chain Maker present, dried reddish blood around anus and in rectal vault Skin: Warm, Dry, intact, no rashes Neuro: AO x3, CN II-XII grossly intact, moves all extremities Course Orders Ordered: Discontinued Medications Fentanyl (Fentanyl 100 Mcg/2 Ml Inj) 50 mcg IV NOW ONE Stop: 07/02/24 01:16 Last Admin: 07/02/24 01:32 Dose: 50 mcg Documented By: SANDRA Fentanyl (Fentanyl 100 Mcg/2 Ml Inj) 50 mcg IV NOW ONE Stop: 07/02/24 03:59 Last Admin: 07/02/24 04:04 Dose: 50 mcg Documented By: SANDRA Sodium Chloride (Normal Saline 0.9%) 1,000 mls @ 1,000 mls/hr IV BOLUS ONE Stop: 07/01/24 22:45 Last Infusion: 07/01/24 23:13 Dose: Infused Documented By: Admin: 07/01/24 22:06 Dose: 1,000 mls/hr Documented By: SANDRA Piperacillin Sod/Tazobactam (Sod 4.5 gm/ Sodium Chloride) 100 mls @ 200 mls/hr IV NOW ONE Stop: 07/01/24 23:15 Last Infusion: 07/02/24 00:25 Dose: Infused Documented By: Admin: 07/01/24 23:50 Dose: 200 mls/hr Documented By: SANDRA Prothrombin Complex Concent ( Human) 2,000 unit/Miscellaneous 80 mls @ 604.188 mls/hr IV NOW ONE; Protocol Stop: 07/01/24 23:29 Last Infusion: 07/02/24 00:25 Dose: Infused Documented By: Admin: 07/02/24 00:08 Dose: 3 unit/kg/min, 604.188 mls/hr Documented By: SANDRA Ondansetron HCl (Ondansetron 4 Mg/2 Ml Inj) 4 mg IV NOW ONE Stop: 07/02/24 01:16 Last Admin: 07/02/24 01:32 Dose: 4 mg Documented By: SANDRA Ondansetron HCl (Ondansetron 4 Mg/2 Ml Inj) 4 mg IV NOW ONE Stop: 07/02/24 03:59 Last Admin: 07/02/24 04:04 Dose: 4 mg Documented By: LS Vital Signs Vital signs: Vital Signs - 8 hr 07/01/24 21:54 07/01/24 22:00 07/01/24 22:34 Temperature 97.9 F Pulse Rate 68 69 Respiratory Rate 16 Blood Pressure 121/59 L Pulse Oximetry 92 94 93 Oxygen Delivery Method Room Air Oxygen Flow Rate 07/01/24 22:35 07/01/24 23:00 07/01/24 23:01 Temperature Pulse Rate 71 68 Respiratory Rate Blood Pressure 144/67 H Pulse Oximetry 97 95 Oxygen Delivery Method Oxygen Flow Rate 07/01/24 23:01 07/01/24 23:30 07/01/24 23:31 Temperature Pulse Rate 68 70 Respiratory Rate 16 18 Blood Pressure 150/69 H Pulse Oximetry 95 94 Oxygen Delivery Method Oxygen Flow Rate 07/01/24 23:31 07/02/24 00:00 07/02/24 00:01 Temperature Pulse Rate 70 66 66 Respiratory Rate 18 Blood Pressure Pulse Oximetry 93 95 94 Oxygen Delivery Method Room Air Oxygen Flow Rate 07/02/24 00:01 07/02/24 00:30 07/02/24 00:31 Temperature Pulse Rate 64 Respiratory Rate 14 16 Blood Pressure 103/55 L 103/53 L Pulse Oximetry 94 Oxygen Delivery Method Oxygen Flow Rate 07/02/24 00:31 07/02/24 01:00 07/02/24 01:00 Temperature Pulse Rate 65 66 Respiratory Rate Blood Pressure 113/54 L Pulse Oximetry 92 93 Oxygen Delivery Method Oxygen Flow Rate 07/02/24 01:30 07/02/24 01:30 07/02/24 02:00 Temperature Pulse Rate 68 Respiratory Rate Blood Pressure 107/56 L 103/53 L Pulse Oximetry 96 Oxygen Delivery Method Oxygen Flow Rate 07/02/24 02:00 07/02/24 02:30 07/02/24 02:30 Temperature Pulse Rate 68 66 Respiratory Rate 16 Blood Pressure 107/57 L Pulse Oximetry 94 96 Oxygen Delivery Method Oxygen Flow Rate 07/02/24 03:00 07/02/24 03:01 07/02/24 03:01 Temperature Pulse Rate 67 67 Respiratory Rate 18 16 Blood Pressure 104/58 L Pulse Oximetry 100 100 Oxygen Delivery Method Nasal Cannula Oxygen Flow Rate 2 07/02/24 03:30 07/02/24 03:30 07/02/24 04:00 Temperature Pulse Rate 71 72 Respiratory Rate Blood Pressure 102/57 L Pulse Oximetry 100 100 Oxygen Delivery Method Oxygen Flow Rate 07/02/24 04:01 07/02/24 04:01 07/02/24 04:33 Temperature 98.4 F Pulse Rate 72 73 Respiratory Rate 18 14 Blood Pressure 126/59 L 107/59 L Pulse Oximetry 100 Oxygen Delivery Method Nasal Cannula Oxygen Flow Rate 2 07/02/24 04:48 Temperature 97.9 F Pulse Rate 73 Respiratory Rate 14 Blood Pressure 102/52 L Pulse Oximetry Oxygen Delivery Method Oxygen Flow Rate MDM - GI Bleed Lab Data 07/02/24 03:34 07/01/24 21:50 Labs: Lab Results 07/01/24 07/01/24 07/02/24 Range/Units 21:50 22:09 03:34 WBC 6.8 (4.5-11.0) X10^3/uL RBC 3.67 L (4.0-5.2) X10^6/uL Hgb 10.1 L 6.3 L* (12.0-16.0) g/dL Hct 31.2 L 19.9 L* (36-46) % MCV 85.0 (80-100) fL MCH 27.5 (26-34) PG MCHC 32.3 (30-36) % RDW 18.4 H (11.6-14.8) % Plt Count 260 (150-400) X10^3/uL Neut % (Auto) 70.5 (50-75) % Lymph % (Auto) 13.7 L (25-40) % [place] % (Auto) 10.3 (3-14) % Eos % (Auto) 4.2 H (2-4) % Baso % (Auto) 1.3 (0-2) % Neut # (Auto) 4800 (4660-4449) /uL Lymph # (Auto) 900 L (8387-5147) /uL [place] # (Auto) 700 (0-900) /uL Eos # (Auto) 300 (0-450) /uL Baso # (Auto) 100 (0-100) /uL PT 25.8 H D (9.4-12.5) SECONDS INR 2.3 H (0.9-1.3) Sodium 135 L (137-145) mmol/L Potassium 3.7 (3.4-5.1) mmol/L Chloride 99 (98-107) mmol/L Carbon Dioxide 28 (22-32) mmol/L BUN 21 H (7-17) mg/dL Creatinine 1.32 H (0.52-1.04) mg/dL Estimated GFR 40 L (>60) mL/min BUN/Creatinine Ratio 15.9 (6-22) Glucose 125 H (80-110) mg/dL Lactate 1.7 (0.7-2.1) mmol/L Calcium 9.4 (8.4-10.2) mg/dL Total Bilirubin 0.7 (0.2-1.3) mg/dL AST 37 H (14-36) IU/L ALT 20 (<35) IU/L Alkaline Phosphatase 129 H (38-126) U/L Total Protein 6.9 (6.3-8.2) g/dL Albumin 3.8 (3.5-5.0) g/dL Globulin 3.1 (1.7-4.1) g/dL Albumin/Globulin Ratio 1.2 (1.0-2.8) Procalcitonin 0.101 (<0.5) ng/mL Blood Type O Positive Antibody Screen Negative Crossmatch See Detail Imaging Data CT scan - abdomen/pelvis: Radiologist's Impression: PROCEDURE: CT ANGIO ABDOMEN PELVIS INDICATIONS: LARGE AMT BRBPR TECHNIQUE: After the administration of intravenous contrast, 2.5 mm sections acquired from the diaphragm to the iliac crests. 10 mm maximum intensity projection (MIP) coronal and sagittal reformats were then performed. For radiation dose reduction, the following was used: automated exposure control. COMPARISON: [facility], CT, CT ABDOMEN PELVIS W CON, 06/28/2024, 17:07. FINDINGS: Image quality: Diagnostic. Abdominal aorta: No aortic aneurysm or dissection. Moderate atherosclerotic calcifications are noted in abdominal aorta. Mesenteric arteries: Patent without hemodynamically significant stenosis. Renal arteries: Patent without hemodynamically significant stenosis. Lower chest: Unremarkable. ABDOMEN: Liver: No solid mass. Gallbladder: Gallbladder is surgically absent. Biliary ducts: No biliary dilation. Pancreas: No ductal dilation. Spleen: Size is within normal limits. Adrenal Glands: No adrenal nodules. Kidneys and Ureters: Lobulated renal contour is again seen with bilateral nonobstructing stones and renal cysts not significantly changed from prior study. No hydronephrosis. No solid mass. No complex renal cystic lesion which requires follow up. Stomach and Bowel: Again noted is wall thickening and mesenteric fat stranding involving mid to distal descending colon in left side of abdomen suggestive of diverticulitis. There is hyperdense material within inflamed appearing descending colon in left side of abdomen concerning for active bleeding in this area best seen on series 9, image 25 and series 7 image 110. Extensive sigmoid diverticulosis is again seen. No discrete drainable abscess collection. There is fluid and fecal matter distending distal sigmoid colon and may represent acute to subacute blood distending the distal sigmoid colon and rectum. Peritoneum: No abnormal intraperitoneal fluid. No free air. Ventral Wall: No hernia. Abdominal Nodes: No retroperitoneal or mesenteric adenopathy by size criteria. Vessels: Aorta, as above. Normal IVC. PELVIS: Pelvic Organs: Unremarkable. Bladder: Unremarkable. Pelvic Nodes: No enlarged lymph nodes. Miscellaneous: No inguinal hernias are seen. Bones: No aggressive osseous abnormality. Postfusion changes are again noted in lower lumbar spine. IMPRESSION: 1. Finding is suggestive of acute diverticulitis involving mid descending colon in left side of abdomen with wall thickening and inflammatory changes. There is suggestion of contrast extravasation into dependent portion of the inflamed descending colon at this level suggestive of active bleeding. There is suggestion of blood and fecal matter distending distal sigmoid colon and rectum. No peritoneal free fluid or free air. 2. No aortic aneurysm or dissection. No hemodynamically significant stenosis are seen in mesenteric arteries or renal arteries. 3. Other findings all unchanged from previous study. Dictated by: Vikram Corral M.D. on 07/01/2024 at 22:45 Approved by: Vikram Corral M.D. on 07/01/2024 at 22:52 MDM Narrative Medical decision making narrative: bright red blood per rectum and patient recently diagnosed with diverticulitis. She was on Eliquis. Rectal exam shows dried blood around rectum. Laboratory work, repeat CT imaging ordered. CT angio abdomen pelvis shows active contrast extravasation in the colon. Concerning for active bleed. Discussed case with Radiology Dr. Corral, who stated that he could not see the bleeding coming from a discrete vessel, but there was definitely evidence of active bleed. For the 1st hour and a half of ED stay patient had not had any further bleeding, however after CT scan was performed DERMATOLOGY TEACHER changed patient's brief and there were large blood clots and blood in the brief. Patient continues have stable blood pressures. Discussed case with on- call general surgery Dr. Guardado, who recommends reversal with Kcentra but thinks that patient would be best served at a facility with Interventional Radiology. Lab, imaging results, surgical recommendations discussed with patient at bedside. Patient informed of risks and benefits of reversing Eliquis including potential increased risk of stroke, but potential to stop GI bleed. Patient has stated that she would like to proceed with reversal of Eliquis. Case discussed with Dr. Aguirre at [facility] at 0010 -patient can be transferred to [facility] to see if IR as needed, however usually reversal of Eliquis stops most bleeding. Extensive conversation with the patient had at bedside and shared decision-making had. Patient reports extreme reluctant to be transferred to a facility far away from home. She states that she would like to see if the Kcentra stops her bleeding, and if she stops bleeding then she would prefer to stay at [facility]. If she continues to have bleeding throughout the night then she consents to transfer to [facility]. Patient continued to have bloody bowel movements despite Kcentra. Repeat hemoglobin at 6 hour april dropped to 6.3. Patient consented to blood products and 2 units of packed red blood cells ordered for transfusion. With patient continuing to have bloody bowel movements despite administration of Kcentra I do believe it would be prudent to transfer patient for higher level of care. Patient in agreement at this time. [facility] contacted again to attempt to transfer Dr. Aguirre accepted patient for transfer. Patient continues to have large bloody bowel movements with clots. Additional 1u PRBCs, 1u FFP ordered for transfusion. BP continues to be stable [facility] arrived for transport. 3rd unit PRBC available, however FFP unable to be thawed in time. BP stable at time of transfer. Critical Care Time Critical Care Time Critical Care Time: Yes Total Critical Care Time: 76 Attestation: Lower GI bleed requiring transfusion of packed red blood cells and transfer for higher level of care Discharge Plan Departure Patient Disposition: [facility] Clinical Impression: Acute lower GI bleeding, Anemia requiring transfusions, Diverticulitis Prescriptions: No Action vitamin B complex [B Complex 1] tablet 1 tab PO DAILY rosuvastatin 5 mg tablet 5 mg PO DAILY Qty: 90 3RF Eliquis 5 mg tablet 5 mg PO BID fluticasone propion-salmeterol [Wixela Inhub] 250-50 mcg/dose blister with device 1 ea inhalation BID Qty: 180 3RF (DME) bipap See Rx Instructions .Route .MEDSUPPLY Qty: 1 0RF Rx Instructions: use As directed. IPAP 10 cmH2O EPAP 4 cm H2O -provide mask, tubing, filters, supplies needed please Spiriva Respimat 2.5 mcg/actuation mist 2 puff INHALATION DAILY Qty: 4 11RF irbesartan 150 mg tablet 150 mg PO DAILY Qty: 90 3RF magnesium 250 mg tablet 250 mg PO DAILY potassium citrate 99 mg capsule PO furosemide 20 mg tablet 20 mg PO DAILY Patient Comments: TAKE ONE TABLET BY MOUTH DAILY albuterol sulfate 90 mcg/actuation HFA aerosol inhaler 2 puff inhalation ONCE omeprazole 20 mg capsule,delayed release(DR/EC) 20 mg PO DAILY nitroglycerin 0.4 mg tablet, sublingual sublingual clonidine HCl 0.1 mg tablet 0.1 mg PO BID Qty: 60 0RF diltiazem HCl 240 mg capsule,extended release 24 hr 240 mg PO DAILY Qty: 90 3RF amiodarone 200 mg tablet 200 mg PO DAILY carvedilol 6.25 mg tablet 6.25 mg PO BID cetirizine 10 mg tablet 10 mg PO DAILY PRN (Reason: congestion) Qty: 30 0RF amoxicillin-pot clavulanate 875-125 mg tablet 1 tab PO TID 10 Days Qty: 30 0RF tramadol 50 mg tablet 50 mg PO BID PRN (Reason: pain) Qty: 7 0RF Referrals: Anum Quispe DO [Primary Care Provider] - Stand Alone Forms: Patient Portal/API/Survey
[2024-07-01 21:58] LABS: Add Manual Diff / Slide Review NO; Basophils Absolute Auto 100 /uL (0-100); Basophils Percent Auto 1.3 % (0-2); Eosinophils Absolute Auto 300 /uL (0-450); Eosinophils Percent Auto 4.2 % (2-4); Hematocrit 31.2 % (36-46); Hemoglobin 10.1 g/dL (12.0-16.0); Lymphocytes Absolute Auto 900 /uL (1100-4500); Lymphocytes Percent Auto 13.7 % (25-40); Mean Corpuscular HGB Conc 32.3 % (30-36); Mean Corpuscular Hemoglobin 27.5 PG (26-34); Monocytes Absolute Auto 700 /uL (0-900); Monocytes Percent Auto 10.3 % (3-14); Neutrophils Absolute Auto 4800 /uL (1500-7000); Neutrophils Percent Auto 70.5 % (50-75); Platelet Count 260 X10^3/uL (150-400); Red Blood Cell Count 3.67 X10^6/uL (4.0-5.2); Red Cell Distribution Width 18.4 % (11.6-14.8); White Blood Cell Count 6.8 X10^3/uL (4.5-11.0)
[2024-07-01] MEDS: SODIUM CHLORIDE 0.9% 1,000 ML 1000 ML IV (22:06)
[2024-07-01 22:07] LABS: INR 2.3 (0.9-1.3); Prothrombin Time 25.8 SECONDS (9.4-12.5)
[2024-07-01 22:12] LABS: Lactate (Lactic Acid) 1.7 mmol/L (0.7-2.1)
[2024-07-01 22:13] LABS: Alanine Aminotransferase 20 IU/L (<35); Albumin 3.8 g/dL (3.5-5.0); Albumin Globulin Ratio 1.2 (1.0-2.8); Alkaline Phosphatase 129 U/L (38-126); Aspartate Aminotransferase 37 IU/L (14-36); BUN Creatinine Ratio 15.9 (6-22); Bilirubin Total 0.7 mg/dL (0.2-1.3); Blood Urea Nitrogen 21 mg/dL (7-17); Calcium 9.4 mg/dL (8.4-10.2); Carbon Dioxide 28 mmol/L (22-32); Chloride 99 mmol/L (98-107); Estimated Glomerular Filt Rate 40 mL/min (>60); Globulin 3.1 g/dL (1.7-4.1); Glucose 125 mg/dL (80-110); HEMOLYSIS 48 (0-50); Potassium 3.7 mmol/L (3.4-5.1); Sodium 135 mmol/L (137-145); Total Protein 6.9 g/dL (6.3-8.2)
--- NOTE | 2024-07-01 22:25 | PC.NURSE ---
Pt to imaging via stretcher with tech
[2024-07-01 22:29] LABS: Procalcitonin 0.101 ng/mL (<0.5)
--- NOTE | 2024-07-01 22:52 | EKG_ITS ---
[id number] [address] Test Date: 2024-07-01 Pat Name: Colleen Crooks Department: [facility] Room: Gender: Female Target Developer: NATE : 1940 Requested By: Order Number: [id number] Reading MD: Everett Melgar Measurements Intervals [place] Rate: 71 P: 86 [place]: 216 QRS: -56 QRSD: 134 T: 49 QT: 452 QTc: 491 Interpretive Statements Sinus rhythm with 1st degree AV block Left axis deviation Nonspecific intraventricular block Minimal voltage criteria for LVH, may be normal variant ( [place] product ) Cannot rule out Septal infarct , age undetermined Electronically Signed On 07-04-2024 19:02:27 PST by Everett Melgar
--- NOTE | 2024-07-01 23:25 | PC.NURSE ---
Large bigg red blood with clots from rectum at this time
[2024-07-01] MEDS: PIPERACILLIN/TAZO 4.5 GM in SODIUM CHLORIDE 0.9% 100 ML IV (23:50)
[2024-07-02] VITALS (29 sets, daily range): BP systolic 102–129; BP diastolic 52–70; PULSE 58–74; RESP 14–18; TEMP 36.2–36.9; O2SAT 92–100
[2024-07-02] MEDS: PROTHROMBIN CPLX(PCC)4FACT 2,000 UNIT in ISOOSMOTIC VEHICLE 0 ML 604.188 UNIT IV (00:08)
[2024-07-02] MEDS: ONDANSETRON 4 MG/2 ML INJ IV ×2 (01:32→04:04)
[2024-07-02] MEDS: fentaNYL 100 MCG/2 ML INJ 50 MCG IV ×2 (01:32→04:04)
--- NOTE | 2024-07-02 01:37 | PC.NURSE ---
large bigg red bloody stools with clots
--- NOTE | 2024-07-02 02:17 | PC.NURSE ---
Placed on 2lnc at this time per pt request. Pt states she sleeps with oxygen.
--- NOTE | 2024-07-02 03:38 | PC.NURSE ---
Repeat h&h drawn from existing left forearm IV
--- NOTE | 2024-07-02 04:10 | PC.NURSE ---
Large bigg red bloody stool with clots, more liquid than prior output.
[2024-07-02 04:12] LABS: Hematocrit 19.9 % (36-46)
[2024-07-02 04:13] LABS: Hemoglobin 6.3 g/dL (12.0-16.0)
--- NOTE | 2024-07-02 04:59 | PC.NURSE ---
Large bigg red stool with clots. Noted less clots than previously.
--- NOTE | 2024-07-02 05:23 | PC.NURSE ---
Large bigg red bloody stool, more thin than previously, with some clots.
== END 2024-07-02 07:19 | disposition short-term general hospital (02) ==
PROVIDERS: Emergency Provider Emergency Medicine; PCP Family Medicine
DX: K57.33 Diverticulitis of large intestine without perforation or abscess with bleeding (principal); D62 Acute posthemorrhagic anemia; I44.0 Atrioventricular block, first degree; I45.4 Nonspecific intraventricular block; R79.89 Other specified abnormal findings of blood chemistry; Z79.01 Long term (current) use of anticoagulants
CPT/HCPCS: 36415; 36430; 74174; 80053; 83605; 84145; 85014; 85018; 85025; 85610; 86850; 86900; 86901; 86927; 93005; 96361; 96365; 96368; 96375; 96376; 99285; 99291; 99292; P9016; J2405; J2543; J3010; J7168; Q9967

== ENCOUNTER → 2024-07-24 09:30 | Outpatient (CLI) | payer MEDICARE, BC, SELFPAY ==
[2024-07-24 11:04] LABS: Add Manual Diff / Slide Review NO; Basophils Absolute Auto 100 /uL (0-100); Eosinophils Absolute Auto 300 /uL (0-450); Eosinophils Percent Auto 5.8 % (2-4); Hematocrit 30.8 % (36-46); Hemoglobin 10.1 g/dL (12.0-16.0); Lymphocytes Absolute Auto 900 /uL (1100-4500); Lymphocytes Percent Auto 17.7 % (25-40); Mean Corpuscular HGB Conc 32.9 % (30-36); Mean Corpuscular Hemoglobin 28.7 PG (26-34); Mean Corpuscular Volume 87.1 fL (80-100); Monocytes Absolute Auto 500 /uL (0-900); Monocytes Percent Auto 9.9 % (3-14); Neutrophils Absolute Auto 3500 /uL (1500-7000); Neutrophils Percent Auto 64.6 % (50-75); Platelet Count 344 X10^3/uL (150-400); Red Blood Cell Count 3.53 X10^6/uL (4.0-5.2); Red Cell Distribution Width 15.4 % (11.6-14.8); White Blood Cell Count 5.3 X10^3/uL (4.5-11.0)
== END ==
PROVIDERS: PCP Family Medicine; Referring Provider Family Medicine; Visit Provider Family Medicine
DX: D64.9 Anemia, unspecified (principal)
CPT/HCPCS: 36415; 85025

== ENCOUNTER → 2024-11-12 14:30 | Outpatient (CLI) | payer MEDICARE, BC, SELFPAY ==
[2024-11-12 15:48] LABS: BUN Creatinine Ratio 19.1 (6-22); Blood Urea Nitrogen 27 mg/dL (7-17); Calcium 9.8 mg/dL (8.4-10.2); Carbon Dioxide 27 mmol/L (22-32); Chloride 102 mmol/L (98-107); Estimated Glomerular Filt Rate 37 mL/min (>60); Glucose 104 mg/dL (80-110); HEMOLYSIS 27 (0-50); Potassium 3.6 mmol/L (3.4-5.1); Sodium 138 mmol/L (137-145)
== END ==
PROVIDERS: PCP Family Medicine; Referring Provider Family Medicine; Visit Provider Family Medicine
DX: N18.30 Chronic kidney disease, stage 3 unspecified (principal); I48.19 Other persistent atrial fibrillation
CPT/HCPCS: 36415; 80048

== ENCOUNTER → 2024-12-19 16:31 | Outpatient (CLI) | payer MEDICARE, BC, SELFPAY ==
[2024-12-19 17:19] LABS: Add Manual Diff / Slide Review NO; Basophils Absolute Auto 100 /uL (0-100); Basophils Percent Auto 1.2 % (0-2); Eosinophils Absolute Auto 200 /uL (0-450); Eosinophils Percent Auto 3.6 % (2-4); Hematocrit 35.1 % (36-46); Hemoglobin 11.3 g/dL (12.0-16.0); Lymphocytes Absolute Auto 1000 /uL (1100-4500); Lymphocytes Percent Auto 24.1 % (25-40); Mean Corpuscular HGB Conc 32.4 % (30-36); Mean Corpuscular Hemoglobin 28.5 PG (26-34); Mean Corpuscular Volume 88.2 fL (80-100); Monocytes Absolute Auto 400 /uL (0-900); Monocytes Percent Auto 10.3 % (3-14); Neutrophils Absolute Auto 2600 /uL (1500-7000); Neutrophils Percent Auto 60.8 % (50-75); Platelet Count 189 X10^3/uL (150-400); Red Blood Cell Count 3.97 X10^6/uL (4.0-5.2); Red Cell Distribution Width 19.5 % (11.6-14.8); White Blood Cell Count 4.3 X10^3/uL (4.5-11.0)
[2024-12-19 17:49] LABS: Alanine Aminotransferase 21 IU/L (<35); Albumin Globulin Ratio 1.5 (1.0-2.8); Alkaline Phosphatase 131 U/L (38-126); Aspartate Aminotransferase 34 IU/L (14-36); BUN Creatinine Ratio 12.1 (6-22); Bilirubin Total 0.8 mg/dL (0.2-1.3); Blood Urea Nitrogen 19 mg/dL (7-17); Calcium 9.3 mg/dL (8.4-10.2); Carbon Dioxide 29 mmol/L (22-32); Chloride 101 mmol/L (98-107); Estimated Glomerular Filt Rate 32 mL/min (>60); Globulin 2.7 g/dL (1.7-4.1); Glucose 102 mg/dL (70-99); HEMOLYSIS < 15 (0-50); Potassium 3.8 mmol/L (3.4-5.1); Sodium 137 mmol/L (137-145); Total Protein 6.7 g/dL (6.3-8.2)
== END ==
LOC: LAB 16:33
PROVIDERS: PCP Family Medicine; Referring Provider Family Medicine; Visit Provider Family Medicine
DX: R10.32 Left lower quadrant pain (principal)
CPT/HCPCS: 36415; 80053; 85025

== ENCOUNTER → 2024-12-26 10:38 | Outpatient (CLI) | payer MEDICARE, BC, SELFPAY ==
--- NOTE | 2024-12-26 10:39 | DI.US.S_ITS ---
PROCEDURE: US BREAST RT LIMITED COMPARISON: [facility], BREAST RT LIMITED, 03/14/2024, 13:02. INDICATIONS: f/u cyst FINDINGS: IMPRESSION: Dictated by: Linsey Pérez M.D. on 12/26/2024 at 16:51 Approved by: Linsey Pérez M.D. on 12/26/2024 at 16:57
--- NOTE | 2024-12-26 11:21 | DI.CT.S_ITS ---
PROCEDURE: CT CHEST ABD PEL W CON INDICATIONS: LLQ pain. TECHNIQUE: After the administration of intravenous contrast, 5 mm thick sections acquired from the lung apices to the symphysis. 5 mm coronal and sagittal reformats were performed, with additional 7 mm MIP reformats through the lungs. For radiation dose reduction, the following was used: automated exposure control, adjustment of mA and/or kV according to patient size. COMPARISON: [facility], CT, CT ABDOMEN PELVIS W CON, 06/28/2024, 17:07. FINDINGS: Image quality: Excellent. CHEST: Lower Neck: No enlarged lymph nodes. Thyroid: No thyroid nodules which require sonographic follow up, per consensus guidelines. Axillae: No enlarged lymph nodes. Chest Wall: There is a 2.55 x 1.45 cm spiculated solid mass in the superior region of the left breast Lungs and Pleura: No pneumothorax or pleural effusions. No consolidation or suspicious nodules. Heart: Heart size is normal. No pericardial effusion. Thoracic Vessels: The aorta and pulmonary arteries demonstrate normal size. Mediastinum and Tonia: No enlarged lymph nodes. Esophagus: No wall thickening. No hiatal hernia. ABDOMEN: Liver: No solid mass. Gallbladder: Status post cholecystectomy Biliary ducts: Stable biliary dilatation. Pancreas: No ductal dilation. Spleen: Size is within normal limits. Adrenal Glands: No adrenal nodules. Kidneys and Ureters: No hydronephrosis. No solid mass. No complex renal cystic lesion which requires follow up. Stomach and Bowel: Normal colonic caliber, without significant wall thickening. Peritoneum: No abnormal intraperitoneal fluid. No free air. Ventral Wall: No significant ventral hernia. Abdominal Nodes: No retroperitoneal or mesenteric adenopathy by size criteria. Vessels: Aorta and inferior vena cava are normal in size. PELVIS: Pelvic Organs: Unremarkable. Bladder: No bladder wall thickening, accounting for underdistention. Pelvic Nodes: No enlarged lymph nodes. Miscellaneous: No inguinal hernias are seen. Bones: No aggressive osseous abnormality. IMPRESSION: 1. Spiculated mass in the superior region of the left breast, very suspicious for malignancy. Biopsy recommended. 2. No acute intra-abdominal abnormality seen. Dictated by: Nirmal Hutchinson M.D. on 12/26/2024 at 15:58 Approved by: Nirmal Hutchinson M.D. on 12/26/2024 at 16:06
--- NOTE | 2024-12-26 16:56 | DI.US.S_ITS ---
Patient Name: BETH WRIGHT date: 1940 Sex: F Attending Physician: Jose Enrique Indications: Date: 12/26/2024 16:56 At the request of: MIRA FERNANDEZ Procedure: US breast RT limited US breast RT limited: 12/26/2024. BI-RADS: 0 CLINICAL: 84-year old female for right diagnostic breast ultrasound. Tyrer- Cuzick lifetime risk of 0.3%. PRIOR EXAMS 03/14/2024. ULTRASOUND TECHNIQUE Real-time dasilva scale and color doppler imaging of the area of clinical interest was performed with image documentation. TARGETED Right Breast Ultrasound: Real-time ultrasound exam was performed focused to area of clinical and/or imaging concern. ULTRASOUND FINDINGS Right: Upper at 12:00, measuring 1.6 x 1.2 x 1 cm: There is an irregularly shaped, indistinct cyst vs solid mass showing posterior acoustic shadowing. Doppler shows no vascularity. This corresponds to the palpable area and was not imaged or present previously. Right: Upper at 11:00, Retroareolar: The previously seen 0.4 cm complicated cyst in the 11:00 right breast previously though to correlate to a palpable abnormality is no longer present. Right: Axilla: No abnormal lymph nodes are seen in the axilla. IMPRESSION: Right (CvS): Upper at 12:00, measuring 1.6 x 1.2 x 1 cm * Incomplete - Needs additional imaging evaluation. RECOMMENDATIONS Continued Report - Page 2 of 2 Patient Name: BETH WRIGHT date: 1940 Sex: F Attending Physician: Jose Enrique Indications: Date: 12/26/2024 16:56 At the request of: MIRA FERNANDEZ Procedure: US breast RT limited Right: Upper at 12:00 * Further evaluation with diagnostic mammography and diagnostic ultrasound. Ultrasound to be performed only if needed. COMMENTS: Findings and recommendations were conveyed to the patient during today's evaluation. OVERALL ASSESSMENT CATEGORY BI-RADS-0: Incomplete - Need Additional Imaging Evaluation. ELECTRONICALLY SIGNED: Linsey Pérez M.D. on 12/26/2024 at 04:56:54 PM PT Interpreting Station ID: [id number]
== END ==
PROVIDERS: PCP Family Medicine; Referring Provider Family Medicine; Visit Provider Family Medicine
DX: R92.8 Other abnormal and inconclusive findings on diagnostic imaging of breast (principal); N60.01 Solitary cyst of right breast; R10.32 Left lower quadrant pain; Z90.49 Acquired absence of other specified parts of digestive tract
CPT/HCPCS: 71260; 74177; 76642; Q9967

== ENCOUNTER → 2025-01-30 10:00 | Outpatient (CLI) | payer MEDICARE, BC, SELFPAY ==
--- NOTE | 2025-01-30 10:01 | DI.MG.S_ITS ---
MM diagnostic mammo BI: 01/30/2025. BI-RADS: 4 CLINICAL: 84-year old female for bilateral diagnostic mammogram that is a follow-up to diagnostic breast ultrasound on 12/26/2024. Tyrer-Cuzick lifetime risk of 0.3%. PRIOR EXAMS Breast Ultrasound(s): 12/26/2024. Two Other Exams on 03/14/2024. MAMMOGRAPHY TECHNIQUE: 2D and 3D (tomosynthesis) digital mammographic views obtained, with additional images as needed for full coverage. Current study was also evaluated with a Computer Aided Detection (CAD) system. DENSITY C. The breasts are heterogeneously dense, which may obscure small masses. MAMMOGRAPHY FINDINGS Right: Upper at 12:00: Possible new asymmetries in the anterior right breast. These are equal density to glandular tissue. No architectural distortion or suspicious calcifications. No definite mammographic correlate to the BI-RADS-4 lesion found on ultrasound. Right: Upper at 11:00, Retroareolar: No definite new mammographic asymmetry. No suspicious mass, asymmetry, microcalcification, or other abnormality seen. Right: Axilla: No abnormal lymph nodes are seen in the axilla on mammogram. No suspicious mass, asymmetry, microcalcification, or other abnormality seen. Left: A cutaneous scar marker overlies the breast. There are expected and stable post surgical changes in the upper outer quadrant, along with dystrophic calcifications and architectural distortion. There is diffuse skin thickening consistent with radiation change. There has been no significant exchange clerk several years and there is no new suspicious finding in the lumpectomy bed as indicated by recent CT scan report. There are no suspicious masses, calcifications, or other findings in the breast. IMPRESSION: Right: Upper at 12:00 * Suspicious findings with likelihood of malignancy. Right * Ultrasound resulted separately. Left * No evidence of malignancy with benign findings. RECOMMENDATIONS Right: Upper at 12:00 * Ultrasound-guided biopsy for further evaluation. COMMENTS: Findings and recommendations were conveyed to the patient during today's evaluation. OVERALL ASSESSMENT CATEGORY BI-RADS-4: Suspicious. ELECTRONICALLY SIGNED: Linsey Pérez M.D. on 01/30/2025 at 03:00:35 PM PT Interpreting Station ID: [id number]
== END ==
PROVIDERS: PCP Family Medicine; Referring Provider Family Medicine; Visit Provider Family Medicine
DX: R92.8 Other abnormal and inconclusive findings on diagnostic imaging of breast (principal); R92.333 Mammographic heterogeneous density, bilateral breasts
CPT/HCPCS: 77066; G0279

== ENCOUNTER → 2025-03-06 08:10 | Outpatient (CLI) | payer MEDICARE, BC, SELFPAY ==
--- NOTE | 2025-03-06 | PATH_ITS ---
[facility] Accession Number: [id number] No. of containers..01 Tissue . 01 Material submitted: . breast - RIGHT BREAST MASS 12:00 RETRO . 01 Diagnosis: RIGHT BREAST MASS 12 O'CLOCK RETROAREOLAR: Invasive carcinoma of the breast. Please see case summary below. . CASE SUMMARY Specimen Procedure: Needle biopsy. Specimen laterality: Right. . Tumor: 12 o'clock retroareolar. Histologic type: Invasive carcinoma of no special type (ductal). Histologic grade Glandular/tubular differentiation: Score 3/3. Nuclear pleomorphism: Score 2/3. Mitotic rate: Score 1/3. Overall grade: Grade 2 (score 6/9). . Ductal carcinoma in situ: Present, cribriform pattern, intermediate nuclear grade, no necrosis identified. . Special studies: Predictive marker immunohistochemical studies are performed on block A1 with the invasive carcinoma showing the following results: . Estrogen receptor (SP1): Positive (91-100%, strong intensity). Progesterone receptor (1E2): Positive (91-100%, strong intensity). Her2 (4B5): Negative (1+). Ki-67 (MIB1): 5% (low proliferative index). . Internal controls for ER and HI are positive. Total fixation time approximately 17 hours. Cold ischemic time cannot be calculated. The scoring criteria for breast biomarkers by immunohistochemistry is based on the ASCO/CAP guidelines (Milan AC et al, J Clin Oncol: 2017Feb 21;36(20):3431-3613 and Carine MARTINEZ et al, Arch Pathol Lab Med: 2009;134(6):907-22). Deparaffinized sections of formalin fixed tissue (along with appropriate positive controls) are incubated with the above antibody(s). Using the automated [place] stainer, tissue is incubated with the designated antibody which is then localized by a non-biotin, dual polymer detection system. The external controls are reviewed for appropriate reactivity and found to be adequate. Results on the target cell population are indicated above. These tests have not been validated on decalcified tissue. . This test was developed and the performance characteristics were validated by [facility]. It has not been cleared or approved by the U.S. Food and Drug Administration. BEATRIZ 03/11/2025 1511 Local . 01 Comment: This case is also reviewed by Dr. Stefanie Vargas (Julie), who agrees with the interpretation. . Dr. Pushpa Mayen discussed results with Umer Torres RN with Dr. Quispe's care team, on 03-11-25 at approximately 3:17 p.m. . 01 Electronically signed: . Pushpa Mayen MD, Pathologist NPI- [id number] . 01 Gross description: . Received is one formalin-filled container labeled with the patient's name labeled Rt. breast 12 o'clock RA. The specimen is received with plastic filter in container and sample loose in container and consists of multiple fragments of light yellow-dasilva to dasilva-hernandez tissue and clotted blood which range in size from 0.1 x 0.1 x 0.1 cm to 1.0 x 0.4 x 0.2 cm. All fragments are totally submitted in cassettes A1-A2. . Possible collection date and time per requisition 03/06/2025 at 0945 hours. No time in formalin provided, cold ischemic time cannot be calculated, total fixation time approximately 17 hours. (DC:[id number]) /[facility] 03/07/2025 0715 Local . 01 Microscopic: . Immunohistochemical stains were performed to evaluate for block reactivity. The control stained with appropriate reactivity. . RESULTS: Block A1 E-cadherin: Positive, consistent with ductal differentiation. GATA3: Positive, consistent with breast origin. P63: Absent in region of interest, consistent with invasive tumor. Myosin: Absent in region of interest, consistent with invasive tumor. . . * This test was developed and the performance characteristics were validated by [facility]. It has not been cleared or approved by the U.S. Food and Drug Administration. . 01 Pathologist provided ICD-10: R92.8, C50.911 . 01 CPT . 107152, 366651, 385286, 844655, 336630, Y44158, S62139 Performed at: [address] [facility] [address], [place], [place] [id number] MD Pee Us MD Phone: [phone]
--- NOTE | 2025-03-06 08:12 | DI.US.S_ITS ---
US bx breast perc w vac device: 03/06/2025. Rad-Path Correlation: Pending CLINICAL: 84-year old female for right procedure that resulted from diagnostic mammogram on 01/30/2025. No Tyrer-Cuzick risk score calculation due to the patient's personal history of breast cancer. Patient reports a history of left breast carcinoma diagnosed at age 73. Status-post left lumpectomy with radiation therapy. Current reported family history of breast cancer: sister. The patient had a prior left breast biopsy. FINDINGS Initial imaging confirmed presence and location of target(s) appropriate for biopsy. The mass is palpable but very mobile. Palpated by the radiologist. The targeted ultrasound was also preformed of the left breast upper outer quadrant scar. This corresponds to the finding on prior CT chest abdomen and pelvis and prior mammograms. Irregular scar again seen. No suspicious blood flow or mass demonstrated. CONSENT Risks including but not limited to bleeding and infection, benefits and alternatives were discussed with the patient. The patient agreed to the procedure and signed informed consent. Time out procedure was used. ROUTINE Right: Patient positioned in the supine or supine-oblique position, prepped and draped in the usual manner using sterile technique. TECHNIQUE Right Breast: Upper Inner at 12:00: Morphology: Irregular micro-lobulated mass measurin.6cm. Procedure: Ultrasound-guided vacuum-assisted biopsy of a mass with Mini Cork marker placement. Device: 14-gauge vacuum-assisted biopsy instrument. BD EleVation(TM). Anesthesia: Local anesthesia obtained using 1%-lidocaine. Secondary local anesthesia obtained using 2%-lidocaine with epinephrine. Skin Entry: Incision with #11 blade. Passes: 5. Targeting Confirmation: Real-time Observation and Post-Procedure Imaging. Marker Placement: Mini cork marker placed in target location. Post-procedure imaging: Post-procedure imaging confirms the marker to be in target location. Rad/Path Correlation: Pending receipt of pathology report. Conclusion: Ultrasound-guided Vacuum-assisted biopsy with post-procedure CC and ML mammographic views with marker placement, Right Breast: Upper Inner at 12:00 COMPLICATIONS: No complications were encountered while the patient was in our department. DISPOSITION The patient left our department in good condition with aftercare instructions and urged to contact us should any problem arise. The breast was compressed to achieve hemostasis. SUMMARY Brief ultrasound evaluation of the left breast UOQ scar. No mass or suspicious blood flow seen. BI-RADS 2. Right Breast: Upper Inner at 12:00: Ultrasound-guided vacuum-assisted biopsy of a mass with Mini Cork marker placement. PATHOLOGY Right Breast: Upper Inner at 12:00: Radiologist-Pathologist Correlation: Pending receipt of pathology report. ELECTRONICALLY SIGNED: Valdez Ag M.D. on 03/06/2025 at 10:21:22 AM PT Interpreting Station ID: [id number]
--- NOTE | 2025-03-06 08:13 | DI.MG.S_ITS ---
MM clip placement RT: 03/06/2025. BI-RADS: None CLINICAL: 84-year old female for right diagnostic mammogram that is a follow-up to diagnostic breast ultrasound on 12/26/2024. No Tyrer-Cuzick risk score calculation due to the patient's personal history of breast cancer. Patient reports a history of left breast carcinoma diagnosed at age 73. Status-post left lumpectomy with radiation therapy. Current reported family history of breast cancer: sister. The patient had a prior left breast biopsy. PRIOR EXAMS Mammogram(s): 01/30/2025, 03/14/2024. CT chest, abdomen, and pelvis 12/26/2024. Ultrasound 12/26/2024, 03/14/2024. MAMMOGRAPHY TECHNIQUE: 2D and 3D (tomosynthesis) digital mammographic views obtained, with additional images as needed for full coverage. Current study was also evaluated with a Computer Aided Detection (CAD) system. DENSITY Right: C. The breast is heterogeneously dense, which may obscure small masses. MAMMOGRAPHY FINDINGS Right: Upper at 12:00, Anterior depth: There is a (Mini Cork) biopsy marker in targeted location. IMPRESSION: Right * Biopsy marker present. OVERALL ASSESSMENT CATEGORY BI-RADS None: This exam requires no BI-RADS. ELECTRONICALLY SIGNED: Valdez Ag M.D. on 03/06/2025 at 10:23:41 AM PT Interpreting Station ID: [id number]
== END ==
LOC: US 08:11
PROVIDERS: PCP Family Medicine; Referring Provider Family Medicine; Visit Provider Family Medicine
DX: C50.811 Malignant neoplasm of overlapping sites of right female breast (principal); R93.89 Abnormal findings on diagnostic imaging of other specified body structures; Z85.3 Personal history of malignant neoplasm of breast; Z80.3 Family history of malignant neoplasm of breast; R92.331 Mammographic heterogeneous density, right breast; Z17.0 Estrogen receptor positive status [ER+]; Z17.21 Progesterone receptor positive status
CPT/HCPCS: 19083; 77065

== ENCOUNTER → 2025-03-15 10:26 | Outpatient (CLI) | payer MEDICARE, BC, SELFPAY ==
[2025-03-15 11:01] LABS: Hematocrit 37.8 % (36-46); Hemoglobin 12.2 g/dL (12.0-16.0); Mean Corpuscular HGB Conc 32.2 % (30-36); Mean Corpuscular Hemoglobin 30.3 PG (26-34); Mean Corpuscular Volume 94.1 fL (80-100); Platelet Count 174 X10^3/uL (150-400)
[2025-03-15 11:21] LABS: Blood Urea Nitrogen 27 mg/dL (7-17); Calcium 9.6 mg/dL (8.4-10.2); Carbon Dioxide 30 mmol/L (22-32); Chloride 101 mmol/L (98-107); Estimated Glomerular Filt Rate 34 mL/min (>60); Glucose 86 mg/dL (70-99); HEMOLYSIS < 15 (0-50); Potassium 4.0 mmol/L (3.4-5.1); Sodium 139 mmol/L (137-145)
== END ==
PROVIDERS: PCP Family Medicine; Referring Provider Family Medicine; Visit Provider Family Medicine
DX: N18.32 Chronic kidney disease, stage 3b (principal); I48.19 Other persistent atrial fibrillation
CPT/HCPCS: 36415; 80048; 85027

== ENCOUNTER 2025-04-19 12:15 | Day surgery (SDC) | payer MEDICARE, BC, SELFPAY ==
[2025-04-11 12:43] VITALS: BMI 31.7
[2025-04-19] VITALS (8 sets, daily range): BP systolic 160–195; BP diastolic 66–78; PULSE 60–63; RESP 11–16; TEMP 36.1–36.7; O2SAT 95–100; BMI 30.7
--- NOTE | 2025-04-19 | PATH_ITS ---
[facility] Accession Number: [id number] No. of containers..02 Tissue . 01 Material submitted: . PART A: breast - RIGHT BREAST MASS PART B: breast - NEW LATERAL MARGIN . 01 Diagnosis: A. RIGHT BREAST MASS, RIGHT LUMPECTOMY: Invasive carcinoma of the breast. Histologic type: Invasive carcinoma of no special type (ductal). Histologic grade: Combined total [place] histologic score: 6/9. -Overall grade: Grade 2/3. Glandular (acinar)/tubular differentiation score: 3/3. Nuclear pleomorphism score: 2/3. Mitotic rate score: 1/3. Overall grade: Grade 2 (score 6/9). Tumor size: 1.4 cm. Tumor focality: Single focus of invasive carcinoma. Ductal carcinoma in situ (DCIS): Present. Negative for extensive intraductal component. Architectural patterns: Cribriform and solid pattern. Nuclear grade: Intermediate (grade 2). Necrosis: Rare, small focus of necrosis. Number of blocks with DCIS: 2. Number of blocks examined: 12. Lobular carcinoma in situ: Not identified. Skin: Not present. Skeletal muscle: Not present. Lymphovascular invasion: Not identified. Dermal lymphatic invasion: Not applicable. Microcalcifications: Not identified. Treatment effect in the breast: No known presurgical therapy. Surgical margins: All margins negative for invasive carcinoma. -Distance from invasive carcinoma to closest margin: 1 mm from the closest anterior (green inked) margin and 2 mm from the closest lateral (orange inked) margin. Margin status for DCIS -Distance from DCIS to closest margin: 1 mm from the closest anterior (green inked) margin and 2.5 mm from the closest lateral (orange inked) margin. Regional lymph nodes: Not applicable (no regional lymph nodes submitted). Distant mestasis: Not applicable. Pathologic staging: pT1c, NX, MX. . Special studies: Breast biomarker testing performed on a previous biopsy (please see previous report for details, [id number]), with the following results: Estrogen receptor (ER) positive (91-100%, strong intensity). Progesterone receptor (OR): Positive (91-100%, strong intensity). HER2 (4B5): Negative (1+). Ki67 (MIB1): 5% (low proliferative index). . Additional findings: Fibrocystic changes, sclerosing adenosis, calcifications associated with benign ducts and previous biopsy changes. . B. NEW LATERAL MARGIN, EXCISION: No invasive carcinoma is present. Focal atypical ductal hyperplasia (ADH) is present. Atypical ductal hyperplasia is present in 3 of 12 blocks examined, involving rare ducts. ADH is located 2.5 mm from the closest lateral (orange inked) margin. Additional findings: Fibrocystic changes, sclerosing adenosis, and calcifications associated with benign ducts. V 04/25/2025 1324 Local . 01 Comment: . . 01 Electronically signed: . Stefanie Vargas MD, Pathologist NPI- [id number] . 01 Gross description: . A. Received: In formalin, labeled with two identifiers and long lateral short superior right breast mass: Specimen: A previously inked sutured and clipped right lumpectomy. Weight: 71 g. Margins: The specimen was inked by the surgeon as follows: Anterior - green; inferior - blue; lateral - orange; medial - yellow; posterior - black; superior - red. A short suture is identified within the red-inked designating superior and a long suture is found within the orange-inked designating lateral per the requisition. The inks applied by the surgeon do not continue onto the lower third of the specimen. At the bench, the inks are equally extended to cover the uninked portion of the specimen. A dasilva plastic clamp is identified within the red ink. Measurement: 11.6 cm from superior to inferior, 2.7 cm from medial to lateral, 7.2 cm anterior to posterior. Skin ellipse: Absent. Wire: Absent. Slices: From superior to inferior into 17 slices. Lesion: One lesion identified. Description: An ill-defined, yellow to hernandez, firm area. Size: 2.3 x 1.1 x 1.1 cm. Slices involved: Slices 2-4. Biopsy site: Present. A cylindrical-shaped biopsy clip is found within slice 3. Distance to margins: The lesion is at the green margin, 0.9 cm from the orange margin, 0.7 cm from the junction of the red and yellow margins, and greater then 1.0 cm from all remaining margins. . Other: The remaining cut surfaces have yellow to white fibroadipose tissue with approximately 10% fibrous tissue. No additional lesion is identified. Fixation: The specimen was removed on 04/19/2025. Time not provided. Cold ischemic time cannot be calculated. Total fixation time is approximately [address] [employer] sections are submitted as follows: A1-A3: Slice 1 red margin perpendicular. A4-A5: Composite slice 2. A6-A7: Composite slice 3 with biopsy site: Greatest extension of lesion and nearest green and orange margins. A8-A10: Composite slice 4. A11: Street [employer] slice 5, no lesion. A12: Street [employer] slice 17 perpendicular. B. Received: In formalin, labeled with two identifiers and new lateral margin, stitch april superior, is a previously inked and oriented fragment of fibroadipose tissue weighing 16 g and measuring 5.9 cm from superior to inferior, 5.5 cm from anterior to posterior, and 1.3 cm medial to lateral. One side of the specimen is inked orange, designating lateral per the op note, and the opposite side of the specimen is inked yellow, designating medial per the op note. The suture designates superior. The anterior edge is inked green. The posterior edge is inked black. The specimen is sectioned from superior to inferior into nine slices. The cut surface is yellow to white fibroadipose tissue with approximately 20% fibrous tissue and no lesion is identified. The specimen is submitted entirely as follows: B1-B2: Slice 1 perpendicular. B3-B9: Composite slices 2-8. B10-B12: Slice 9 perpendicular. . The specimen was removed on 04/19/2025. Time not provided. Cold ischemic time cannot be calculated. Total fixation time is approximately 53 hours. (:[id number]) /[facility] 04/20/2025 [facility]0 Local . 01 Microscopic: . A. P63 (BLOCKS A1, A5 AND A7) and Myosin immunostains (BLOCK A5) were performed to accurately evaluate the size of the invasive carcinoma and also to assess distance from the closest margins. Immunohistochemical results support the diagnosis. . B. P63 (BLOCK B5 and B6) was performed to rule out invasion and CK5/6 (BLOCKS B2 and B7) and ER immunostains (BLOCKS B2 and B7) were performed to support atypical ductal hyperplasia vs usual hyperplasia. Immunohistochemical results support the diagnosis. . * This test was developed and its performance characteristics determined by [facility]. It has not been cleared or approved by the U.S. Food and Drug Administration. The FDA has determined that such clearance or approval is not necessary. This test is used for clinical purposes. It should not be regarded as investigational or for research. . 01 Pathologist provided ICD-10: C50.911 . 01 CPT . 370673, 941914, O15044, B45610 Specimen Comment: A courtesy copy of this report has been sent to [phone] Performed at: [address] [id number] MD Pee Us MD Phone: [phone]
--- NOTE | 2025-04-19 14:03 | PM.PREOP ---
Pre-operative Note COVID-19 COVID-19 status: Not tested Interval Note History & Physical reviewed/Exam performed by Physician: Yes Changes to H&P: No ASA Class (for procedural sedation): III
--- NOTE | 2025-04-19 15:15 | SUR.OPER ---
Supine on padded OR bed, head on pillow, arms secured on padded arm board <90 degrees abduction, legs uncrossed, safety belt at thigh, tape over blanket over lower legs.
[2025-04-19] MEDS: ACETAMINOPHEN IV 1,000 MG/100 ML VIAL 400 MG IV (15:26)
--- NOTE | 2025-04-19 15:58 | DI.MG.S_ITS ---
MM surgical specimen RT: 04/19/2025. CLINICAL: 84-year old female for exam. RIGHT BREAST SPECIMEN. PRIOR EXAMS Mammogram(s): 03/06/2025, 01/30/2025. Breast Ultrasound(s): 12/26/2024. Breast Procedure(s): 03/06/2025. TECHNIQUE: Right specimen radiograph. FINDINGS A tissue marker is seen within the specimen. IMPRESSION: * A tissue marker is seen in the specimen; please see operative note and pathology report. COMMENTS: The technologist discussed the findings with the referring surgeon at time of surgery. PRELIMINARILY ELECTRONICALLY SIGNED: Krista Fairbanks M.D. on 04/19/2025 at 04:36:33 PM PT ELECTRONICALLY SIGNED: Krista Fairbanks M.D. on 04/21/2025 at 09:44:09 PM PT Interpreting Station ID: [id number]
--- NOTE | 2025-04-19 16:22 | P.OP_ITS ---
Operative Date/Time/Diagnoses Date of procedure: 04/19/25 Time of procedure: 16:22 Pre-op diagnosis: Right breast cancer Post-op diagnosis: same Procedure & Clinicians Procedure: Right breast lumpectomy Same procedure(s) as scheduled: Yes Surgeon: Carter Buckley Click Yes if Unassisted: Yes Anesthesia Type: General Operative Notes Findings: Biopsy clip seen on mammogram Applied: none Estimated Blood Loss (mL): 10 Procedure in detail: The patient was brought to the operating room and placed on the table in the supine position with the right arm out. No antibiotics were administered. General anesthesia was induced. The right breast was prepped and draped in the usual fashion and a time-out was performed. A 5 cm vertical incision was crea amina superior to the areola over the palpable mass. Flaps were created laterally and medially to lift the skin. A generous lumpectomy specimen was then excised down to the chest wall. The specimen was oriented with a short stitch superior and a long stitch laterally. We used the margin marker kit to orient the specimen in the following manner: Green: anterior Blue: Inferior Meagher: Lateral Yellow: Medial Black: Posterior Red: Superior The specimen was then placed on the portable C-arm to assure that the clip was within the tissue. The tissue was then sent to Radiology for an official specimen mammogram which did show the clip in the specimen. We took an additional thin margin from the lateral wall of the wound cavity as the palpable mass was felt to be closer to the lateral aspect of the specimen. This was marked with a stitch along the superior border and orange ink lateral and yellow ink medial. This was sent as a ?new lateral margin?. The wound cavity was irrigated with sterile saline. A few bleeders were cauterized. Additional local was injected into the fascia over the pectoralis major. The skin incision was closed in layers using multiple interrupted 3-0 Vicryl dermal sutures followed by a running 4-0 Monocryl subcuticular stitch. Sterile dressings and a breast binder were applied. The patient was awakened and brought to recovery. Complications: none Post-operative Condition: stable Disposition: PACU
== END 2025-04-19 17:23 | disposition home or self-care (01) ==
PROVIDERS: PCP Family Medicine; Referring Provider Surgery; Visit Provider Surgery
PROC: (CPT 19301; principal; 2025-04-19 14:15)
DX: C50.911 Malignant neoplasm of unspecified site of right female breast (principal); J44.9 Chronic obstructive pulmonary disease, unspecified; I48.91 Unspecified atrial fibrillation; I10 Essential (primary) hypertension
CPT/HCPCS: 19301; 76098; J0131; J1100; J2405; J2704; J3010

== ENCOUNTER → 2025-05-02 09:27 | Outpatient (CLI) | payer MEDICARE, BC, SELFPAY ==
[2025-05-02 10:39] LABS: Blood Urea Nitrogen 35 mg/dL (7-17); Calcium 9.2 mg/dL (8.4-10.2); Carbon Dioxide 27 mmol/L (22-32); Chloride 102 mmol/L (98-107); Estimated Glomerular Filt Rate 30 mL/min (>60); Glucose 112 mg/dL (70-99); HEMOLYSIS < 15 (0-50); Potassium 3.7 mmol/L (3.4-5.1); Sodium 139 mmol/L (137-145)
== END ==
PROVIDERS: PCP Family Medicine; Referring Provider Family Medicine; Visit Provider Internal Medicine Cardiovascular Disease
DX: I10 Essential (primary) hypertension (principal)
CPT/HCPCS: 36415; 80048

== ENCOUNTER → 2025-05-17 13:20 | Outpatient (CLI) | payer MEDICARE, BC, SELFPAY ==
--- NOTE | 2025-05-17 13:22 | DI.US.S_ITS ---
US breast RT limited: 05/17/2025. BI-RADS: 2 CLINICAL: 85-year old female for right diagnostic breast ultrasound. No Tyrer- Cuzick risk score calculation due to the patient's personal history of breast cancer. Patient reports a history of left breast carcinoma diagnosed at age 73. Status-post left lumpectomy with radiation therapy. The patient presents with right breast discoloration and swelling four weeks after her lumpectomy. PRIOR EXAMS 03/06/2025, 01/30/2025, 12/26/2024, 03/14/2024. ULTRASOUND TECHNIQUE Real-time dasilva scale and color doppler imaging of the area of clinical interest was performed with image documentation. TARGETED Right Breast Ultrasound: Real-time ultrasound exam was performed focused to area of clinical and/or imaging concern. ULTRASOUND FINDINGS Right: Upper at 12:00, 3 cm from nipple, measuring 11.3 x 11.7 x 10.4 cm: Correlating with patient concern there is a hematoma. Doppler shows no vascularity. IMPRESSION: Right * No evidence of malignancy with benign findings. RECOMMENDATIONS Right: Upper at 12:00, 3 cm from nipple * Ultrasound guided aspiration will be performed same day for symptomatic relief. COMMENTS: Findings and recommendations were conveyed to the patient during today's evaluation. OVERALL ASSESSMENT CATEGORY BI-RADS-2: Benign. ELECTRONICALLY SIGNED: Krista Fairbanks M.D. on 05/17/2025 at 02:06:06 PM PT Interpreting Station ID: [id number]
--- NOTE | 2025-05-17 15:10 | DI.US.S_ITS ---
PROCEDURE: US BREAST ASP COMPARISON: [facility], , US BREAST RT LIMITED, 05/17/2025, 13:37. [facility], , MM SURGICAL SPECIMEN RT, 04/19/2025, 15:56. INDICATIONS: RIGHT BREAST HEMATOMA ASPIRATION FINDINGS: After informed consent the been obtained the right breast was examined sonographically site chosen for aspiration of the complex, presumed hematoma aspiration. Skin was prepped and draped in the usual fashion and 1% xylocaine infiltrated from the skin down to the hematoma surface. A 19 gauge Angiocath needle was then introduced into the complex fluid collection and roughly 100 cc of bloody fluid was aspirated. Needle was removed and dressing was applied. Patient experienced no complications throughout the procedure. IMPRESSION: Successful sonographically directed therapeutic right breast aspiration. Dictated by: Hua MUNOZ Interpreted: Vikram Corral MD on 05/27/2025 at 8:39 Transcribed by: LILLIANA on 05/27/2025 at 8:47 Approved by: Vikram Corral M.D. on 05/27/2025 at 14:04
== END ==
PROVIDERS: PCP Family Medicine; Referring Provider Surgery; Visit Provider Surgery
DX: C50.911 Malignant neoplasm of unspecified site of right female breast (principal); N64.89 Other specified disorders of breast; Z85.3 Personal history of malignant neoplasm of breast
CPT/HCPCS: 10005; 10030; 76642

== ENCOUNTER → 2025-05-21 11:57 | Outpatient (CLI) | payer MEDICARE, BC, SELFPAY ==
[2025-05-21 12:55] LABS: Add Manual Diff / Slide Review NO; Hematocrit 33.4 % (36-46); Hemoglobin 11.0 g/dL (12.0-16.0); Lymphocytes Absolute Auto 800 /uL (1100-4500); Mean Corpuscular HGB Conc 32.9 % (30-36); Mean Corpuscular Hemoglobin 30.9 PG (26-34); Mean Corpuscular Volume 94.1 fL (80-100); Platelet Count 218 X10^3/uL (150-400)
== END ==
PROVIDERS: PCP Family Medicine; Referring Provider Surgery; Visit Provider Surgery
DX: C50.911 Malignant neoplasm of unspecified site of right female breast (principal); N64.89 Other specified disorders of breast; N60.01 Solitary cyst of right breast
CPT/HCPCS: 36415; 85025; 99213

== ENCOUNTER 2025-06-07 11:16 | Emergency (ER) | payer MEDICARE, BC, SELFPAY ==
[2025-06-07] VITALS (18 sets, daily range): BP systolic 186–217; BP diastolic 76–91; PULSE 54–80; RESP 12–26; TEMP 36.8; O2SAT 91–99; BMI 29.9
--- NOTE | 2025-06-07 11:35 | DI.US.S_ITS ---
US breast RT limited: 06/07/2025. BI-RADS: 3 CLINICAL: 85-year old female for right diagnostic breast ultrasound. No Tyrer- Cuzick risk score calculation due to the patient's personal history of breast cancer. Patient reports a history of left breast carcinoma diagnosed at age 73. Status-post left lumpectomy on 04/19/2025 with radiation therapy. The patient presents for evaluation of a palpable abnormality in the right breast with associated bruising of the breast. The patient had a presumed hematoma that was aspirated on 05/17/2025. PRIOR EXAMS Mammogram(s): 03/06/2025, 01/30/2025. Breast Ultrasound(s): 05/17/2025, 12/26/2024. Exam: 04/19/2025. Breast Procedure(s): 05/17/2025, 03/06/2025. ULTRASOUND TECHNIQUE Real-time dasilva scale and color doppler imaging of the area of clinical interest was performed with image documentation. Right targeted breast ultrasound of the area of clinical interest and the axilla was performed with image documentation. ULTRASOUND FINDINGS Right: Upper Inner at 1:00, 3 cm from nipple, measuring 11.1 x 6.6 x 10.9 cm - previously measuring (05/17/2025) 11.3 x 11.7 x 10.4 cm. Previous report: Upper at 12:00: Correlating with patient concern there is a complex mass with thick septations. Doppler shows no vascularity. This site was previously aspirated on 05/17/2025, and approximately 100 cc of bloody fluid was drained. This likely represents a recurrent hematoma in setting of recent surgery in April. IMPRESSION: Right (Complex Cyst): Upper Inner at 1:00, 3 cm from nipple, measuring 11.1 x 6.6 x 10.9 cm - previously measuring (05/17/2025) 11.3 x 11.7 x 10.4 cm. Previous report: Upper at 12:00 * Probably Benign. RECOMMENDATIONS Right: Upper Inner at 1:00, 3 cm from nipple * Consider short interval ultrasound follow up in 6 to 8 weeks to document imaging resolution after appropriate clinical treatment. * Recommend further management of the presumed recurrent hematoma per surgical consultation. OVERALL ASSESSMENT CATEGORY BI-RADS-3: Probably Benign. ELECTRONICALLY SIGNED: Krista Fairbanks M.D. on 06/07/2025 at 01:02:52 PM PT Interpreting Station ID: [id number]
--- NOTE | 2025-06-07 11:36 | DI.CT.S_ITS ---
PROCEDURE: CT HEAD/BRAIN WO CON INDICATIONS: progressive weakness TECHNIQUE: Noncontrast 4.5 mm thick angled axial sections acquired from the foramen magnum to the vertex, with coronal and sagittal reformats. For radiation dose reduction, the following was used: automated exposure control, adjustment of mA and/or kV according to patient size. COMPARISON: [facility], CT, CT HEAD/BRAIN WO CON, 05/01/2024, 10:43. FINDINGS: Image quality: Diagnostic. CSF spaces: Basal cisterns are patent. No extra-axial fluid collections. The ventricles are symmetric in size and shape. Brain: No intracranial bleeds or mass effect. There is cerebral volume loss, with resultant ventricular and sulcal prominence. There are periventricular and deep white matter chronic small vessel ischemic changes. There is intracranial internal carotid artery atherosclerosis. Skull and face: Calvarium and visualized facial bones appear intact, without suspicious lesions. Sinuses: Visualized sinuses and mastoids are clear. IMPRESSION: No acute intracranial pathology. Dictated by: Noah Hyde M.D. on 06/07/2025 at 13:26 Approved by: Noah Hyde M.D. on 06/07/2025 at 13:26
--- NOTE | 2025-06-07 11:40 | EKG_ITS ---
[facility] [address] [place] [address] Test Date: 2025-06-07 Pat Name: Colleen Crooks Department: [facility] Room: Gender: Female [employer]: XIN : 1940 Requested By: Order Number: [id number] Reading MD: Jesse Solares MD Measurements Intervals [place] Rate: 64 P: 63 FL: 236 QRS: -54 QRSD: 138 T: 29 QT: 436 QTc: 449 Interpretive Statements Sinus rhythm with 1st degree AV block with premature atrial complexes Left axis deviation Nonspecific intraventricular block Minimal voltage criteria for LVH, may be normal variant ( Ricky product ) Cannot rule out Anteroseptal infarct , age undetermined NO SIGNIFICANT CHANGE FROM PRIOR TRACING Electronically Signed On 06-07-2025 12:03:39 PDT by Jesse Solares MD
[2025-06-07 11:59] LABS: Add Manual Diff / Slide Review NO; Hematocrit 34.4 % (36-46); Hemoglobin 11.1 g/dL (12.0-16.0); Lymphocytes Absolute Auto 800 /uL (1100-4500); Mean Corpuscular HGB Conc 32.2 % (30-36); Mean Corpuscular Hemoglobin 30.2 PG (26-34); Mean Corpuscular Volume 93.6 fL (80-100); Platelet Count 189 X10^3/uL (150-400)
[2025-06-07 12:10] LABS: Alanine Aminotransferase 16 IU/L (<35); Albumin 4.2 g/dL (3.5-5.0); Albumin Globulin Ratio 1.4 (1.0-2.8); Alkaline Phosphatase 98 U/L (38-126); Blood Urea Nitrogen 22 mg/dL (7-17); Calcium 9.4 mg/dL (8.4-10.2); Carbon Dioxide 29 mmol/L (22-32); Chloride 100 mmol/L (98-107); Estimated Glomerular Filt Rate 32 mL/min (>60); Globulin 3.0 g/dL (1.7-4.1); Glucose 129 mg/dL (70-99); HEMOLYSIS < 15 (0-50); Lactate (Lactic Acid) 1.9 mmol/L (0.7-2.1); Potassium 3.4 mmol/L (3.4-5.1); Sodium 138 mmol/L (137-145); Total Protein 7.2 g/dL (6.3-8.2)
[2025-06-07 12:23] LABS: Troponin I < 0.012 ng/mL (0.01-0.034)
--- NOTE | 2025-06-07 15:45 | ED.GENADULT ---
HPI - General Adult General Chief complaint: Weakness Stated complaint: Fatigue, Dizziness, Nausea, 8wks Post Op Time Seen by Provider: 06/07/25 11:22 Source: patient Mode of arrival: Wheelchair History of Present Illness HPI narrative: 85-year-old woman with a history of breast cancer recent right lumpectomy with complications with bleeding into the right breast requiring drainage 2 weeks post surgery, chronic atrial fibrillation treated with anticoagulation and rate controlled with diltiazem, coronary artery disease, a history of lower GI bleeding requiring transfusion, hypertension who presents today complaining she is dizzy and nauseated for the last at least 5 days. She is not complaining of exertional dyspnea, palpitations, abdominal pain. No recent fevers cough or chills. Related Data Home Medications ?Medication ?Instructions ?Recorded ?Confirmed vitamin B complex (B Complex 1 1 tab PO DAILY 05/25/18 05/30/25 tablet) albuterol sulfate 90 mcg/actuation 2 puff inhalation ONCE 02/25/23 05/30/25 aerosol inhaler furosemide 20 mg tablet 20 mg PO DAILY 02/25/23 05/30/25 nitroglycerin 0.4 mg sublingual mg sublingual 08/24/23 05/30/25 tablet carvedilol 6.25 mg tablet 6.25 mg PO BID 05/16/24 05/30/25 acetaminophen 325 mg capsule 650 mg PO Q6H PRN pain 07/19/24 05/30/25 magnesium oxide 250 mg PO DAILY 07/19/24 05/30/25 omeprazole 20 mg capsule,delayed 20 mg PO DAILY PRN pain (scale 07/19/24 05/30/25 release score 1-3) potassium citrate 99 mg capsule mg PO DAILY 11/12/24 05/30/25 diltiazem HCl 180 mg 180 mg PO DAILY 03/15/25 05/30/25 capsule,extended release 24 hr Previous Rx's ?Medication ?Instructions ?Recorded fluticasone 250 mcg-salmeterol 50 1 ea inhalation BID #180 ea 09/19/23 mcg/dose blistr powdr for inhalation (Sussy Dey) irbesartan 150 mg tablet 150 mg PO DAILY #90 tabs 04/30/24 apixaban 2.5 mg tablet (Eliquis) 2.5 mg PO BID #180 tabs 12/10/24 rosuvastatin 5 mg tablet 5 mg PO DAILY #90 tabs 08/16/24 vibegron 75 mg tablet (Gemtesa) 75 mg PO DAILY overactive bladder 08/16/24 #90 tabs ResMED bipap #1 ea 12/18/24 tiotropium bromide 2.5 2 puff inhalation DAILY #4 grams 01/29/25 mcg/actuation mist for inhalation (Spiriva Respimat) hydrocodone 5 mg-acetaminophen 325 1 tab PO Q8H PRN pain #10 tabs 04/25/25 mg tablet Allergies Allergy/AdvReac Type Severity Reaction Status Date / Time doxazosin AdvReac Syncope. Verified 06/07/25 11:28 Review of Systems Review of Systems Narrative: Pertinent positive and negative findings as per HPI Patient History Medical History History of left heart catheterization (06/2023) GIB (gastrointestinal bleeding) (06/2024) Proteus septicemia (2021) NSTEMI (non-ST elevated myocardial infarction) (2019) PAF (paroxysmal atrial fibrillation) Invasive ductal carcinoma of right breast Cyst of right breast Grieving Encounter for initial annual wellness visit (AWV) in Medicare patient CKD (chronic kidney disease) stage 3, GFR 30-59 ml/min Atrial fibrillation, persistent Insomnia Osteopenia Measles Herpes Partial blindness (~2009) Myocardial infarction (~2020) Chicken pox Mumps Fractures (2014) Shoulder pain (2015) Depression COPD (chronic obstructive pulmonary disease) (2013) Sleep apnea (2013) Osteoarthritis (~1979) Eczema (2008) Macular degeneration (~2004) Hypertension (1983) Breast cancer (2012) Surgical History S/P lumpectomy, right breast (04/19/25) History of urologic surgery (01/2022) History of urologic surgery (12/2021) S/P cystoscopy with ureteral stent placement (10/2021) History of lumpectomy of left breast (2013) History of back surgery Hx of tonsillectomy Hx of cholecystectomy History of cardiac ablation for atrial fibrillation (04/2024) Family History Father Stroke Mother Cancer Brother Cancer Sister No problems noted. Social History household members: none alcohol intake: current alcohol intake frequency: a few times a month Exam Initial Vital Signs Initial Vital Signs: Vital Signs Pulse Rate 80 06/07/25 11:23 Pulse Oximetry 99 06/07/25 11:23 General: Older appearing slight fatigue but no acute distress. Able to cooperate fully with the exam HEENT: Moist mucous membranes, normal sclera with reactive pupils, Respiratory: Lungs are clear to auscultation, no wheezing no rales no rhonchi. Full and symmetrical air movement Chest: Right breast is full presumably from blood in the surgical site reaccumulated after initial draining. There is some old hematoma around the area. It is not warm to the touch and not painful. Cardiac: Irregular without murmurs Abdomen: Soft, nontender, no rebound or guarding, no flank pain Skin: Warm and dry, no rashes Neurologic: Grossly neurologically intact with no obvious asymmetries or abnormalities Extremities: No trauma, no significant lower extremity of the Psych: Cooperative, appropriate insight and affect Course Orders Ordered: ED Orders 06/07/25 11:33 EKG-12 Lead Stat 06/07/25 11:35 US breast RT limited Stat 06/07/25 11:36 CT head/brain wo con Stat 06/07/25 11:40 Complete Blood Count AUTO DIFF Stat Comprehensive Metabolic Panel Stat Lactate (Lactic Acid) Stat Troponin I Stat Type and Screen Stat 06/07/25 13:53 Blood Culture Stat Vital Signs Vital signs: Vital Signs - 8 hr 06/07/25 11:23 06/07/25 11:24 06/07/25 11:24 Temperature Pulse Rate 80 80 Respiratory Rate Blood Pressure 186/86 H Pulse Oximetry 99 94 Oxygen Delivery Method 06/07/25 11:28 06/07/25 11:30 06/07/25 12:55 Temperature 98.3 F Pulse Rate 79 65 66 Respiratory Rate 18 23 26 H Blood Pressure 186/86 H Pulse Oximetry 95 96 91 Oxygen Delivery Method Room Air 06/07/25 12:56 06/07/25 12:56 06/07/25 13:00 Temperature Pulse Rate 64 60 Respiratory Rate 21 Blood Pressure 212/85 H Pulse Oximetry 93 95 Oxygen Delivery Method 06/07/25 13:30 06/07/25 13:31 06/07/25 13:31 Temperature Pulse Rate 54 L 56 L Respiratory Rate 14 16 Blood Pressure 217/91 H Pulse Oximetry 95 96 Oxygen Delivery Method 06/07/25 14:00 06/07/25 14:01 06/07/25 14:01 Temperature Pulse Rate 55 L 55 L Respiratory Rate 12 17 Blood Pressure 186/76 H Pulse Oximetry 95 96 Oxygen Delivery Method Room Air 06/07/25 14:30 06/07/25 14:31 06/07/25 14:31 Temperature Pulse Rate 55 L 57 L Respiratory Rate 15 17 Blood Pressure 201/81 H Pulse Oximetry 95 95 Oxygen Delivery Method 06/07/25 15:00 06/07/25 15:00 06/07/25 15:30 Temperature Pulse Rate 58 L 60 Respiratory Rate 19 16 Blood Pressure 208/85 H Pulse Oximetry 94 93 Oxygen Delivery Method 06/07/25 15:31 06/07/25 15:31 Temperature Pulse Rate 61 Respiratory Rate 18 Blood Pressure 217/86 H Pulse Oximetry 95 Oxygen Delivery Method Medical Decision Making Lab Data 06/07/25 11:40 06/07/25 11:40 Labs: Lab Results 06/07/25 Range/Units 11:40 WBC 4.6 (4.5-11.0) X10^3/uL RBC 3.68 L (4.0-5.2) X10^6/uL Hgb 11.1 L (12.0-16.0) g/dL Hct 34.4 L (36-46) % MCV 93.6 (80-100) fL MCH 30.2 (26-34) PG MCHC 32.2 (30-36) % RDW 15.0 H (11.6-14.8) % Plt Count 189 (150-400) X10^3/uL Neut % (Auto) 68.3 (50-75) % Lymph % (Auto) 17.5 L (25-40) % [place] % (Auto) 9.1 (3-14) % Eos % (Auto) 4.0 (2-4) % Baso % (Auto) 1.1 (0-2) % Neut # (Auto) 3200 (2338-8546) /uL Lymph # (Auto) 800 L (4562-9967) /uL [place] # (Auto) 400 (0-900) /uL Eos # (Auto) 200 (0-450) /uL Baso # (Auto) 0 (0-100) /uL Sodium 138 (137-145) mmol/L Potassium 3.4 (3.4-5.1) mmol/L Chloride 100 (98-107) mmol/L Carbon Dioxide 29 (22-32) mmol/L BUN 22 H (7-17) mg/dL Creatinine 1.58 H (0.52-1.04) mg/dL Estimated GFR 32 L (>60) mL/min BUN/Creatinine Ratio 13.9 (6-22) Glucose 129 H (70-99) mg/dL Lactate 1.9 (0.7-2.1) mmol/L Calcium 9.4 (8.4-10.2) mg/dL Total Bilirubin 0.6 (0.2-1.3) mg/dL AST 32 (14-36) IU/L ALT 16 (<35) IU/L Alkaline Phosphatase 98 (38-126) U/L Troponin I < 0.012 (0.01-0.034) ng/mL Total Protein 7.2 (6.3-8.2) g/dL Albumin 4.2 (3.5-5.0) g/dL Globulin 3.0 (1.7-4.1) g/dL Albumin/Globulin Ratio 1.4 (1.0-2.8) Blood Type O Positive Antibody Screen Negative Imaging Data Breast ultrasound: Radiologist's Impression: US breast RT limited: 06/07/2025. BI-RADS: 3 CLINICAL: 85-year old female for right diagnostic breast ultrasound. No Tyrer-Cuzick risk score calculation due to the patient's personal history of breast cancer. Patient reports a history of left breast carcinoma diagnosed at age 73. Status-post left lumpectomy on 04/19/2025 with radiation therapy. The patient presents for evaluation of a palpable abnormality in the right breast with associated bruising of the breast. The patient had a presumed hematoma that was aspirated on 05/17/2025. PRIOR EXAMS Mammogram(s): 03/06/2025, 01/30/2025. Breast Ultrasound(s): 05/17/2025, 12/26/2024. Exam: 04/19/2025. Breast Procedure(s): 05/17/2025, 03/06/2025. ULTRASOUND TECHNIQUE Real-time dasilva scale and color doppler imaging of the area of clinical interest was performed with image documentation. Right targeted breast ultrasound of the area of clinical interest and the axilla was performed with image documentation. ULTRASOUND FINDINGS Right: Upper Inner at 1:00, 3 cm from nipple, measuring 11.1 x 6.6 x 10.9 cm - previously measuring (05/17/2025) 11.3 x 11.7 x 10.4 cm. Previous report: Upper at 12:00: Correlating with patient concern there is a complex mass with thick septations. Doppler shows no vascularity. This site was previously aspirated on 05/17/2025, and approximately 100 cc of bloody fluid was drained. This likely represents a recurrent hematoma in setting of recent surgery in April. IMPRESSION: Right (Complex Cyst): Upper Inner at 1:00, 3 cm from nipple, measuring 11.1 x 6.6 x 10.9 cm - previously measuring (05/17/2025) 11.3 x 11.7 x 10.4 cm. Previous report: Upper at 12:00 * Probably Benign. RECOMMENDATIONS Right: Upper Inner at 1:00, 3 cm from nipple * Consider short interval ultrasound follow up in 6 to 8 weeks to document imaging resolution after appropriate clinical treatment. * Recommend further management of the presumed recurrent hematoma per surgical consultation. OVERALL ASSESSMENT CATEGORY BI-RADS-3: Probably Benign. ELECTRONICALLY SIGNED: Krista Fairbanks M.D. on 06/07/2025 at 01:02:52 PM PT MDM Narrative Medical decision making narrative: CC: Dizzy, nausea, weakness for 5 days Complicating co-morbidities: Recent right breast lumpectomy complicated by bleeding into the operative site requiring drainage, coronary artery disease, chronic atrial fibrillation, hypertension Data collected from: patient Medical records reviewed: Surgical office visit May 30 to discuss the hematoma in her right breast is reviewed Primary care visit March 15 2025 for atrial fibrillation is Differential considered: Anemia, infection, viral syndrome, cancer complications, heart failure, coronary artery disease Exam documented above, pertinent findings include: Patient appears fatigued but is in no acute distress. Right breast surgical site has healed well but it does feel that she has more blood in the breast, she notes that it had started to decrease and now has remained of the current degree of fullness. It is not increasing it is not painful. Lab Test results independently reviewed as above. Pertinent findings: CBC is unremarkable with hemoglobin at 11.1, comparison is 11.0 on May 21 Chemistries are notable for chronic kidney insufficiency with a creatinine at 1.58 that appears stable. Remainder of electrolytes are unremarkable Troponin is undetected Independently reviewed EKG: Sinus rhythm at a rate of 64. Left axis deviation, interventricular conduction delay, no acute ischemic changes Imaging studies independently reviewed: Ultrasound of the breast shows continued hematoma that does not appear dramatically changed compared to May 17 Consultations: Dr. Buckley regarding the breast hematoma. He will follow up with her in clinic next week Discussion: 85-year-old woman with weakness, unexplained at this point. No evidence for infection, severe anemia, significant electrolyte abnormalities or alternate explanations that would require hospitalization or further workup at this time. Reviewed findings with the patient encouraged her to rest for the next couple of days to she can to make sure that she is eating and drinking adequately and anticipate a call from Dr. Buckley's office for follow up in the next week Discharge Plan Departure Patient Disposition: Home Clinical Impression: Weakness, Hematoma (nontraumatic) of breast Activity Restrictions/Additional Instructions: Thank you for coming in today I do not have an explanation for an weakness. I am not seeing signs of stroke, infection either bacterial or viral, electrolyte abnormalities, your kidney function is stable, there was no signs of significant anemia. The hematoma that you have in your breast has not really changed much. Does not appear to be getting bigger I am not currently concerned that is infected. I did discuss this with Dr. Buckley and his office will call you to schedule a follow up appointment as an outpatient sometime next week I would recommend that you allow yourself some rest, make sure that you are eating and drinking adequately. If you find that you have more specific symptoms, fevers, pain or an alternate place for me to look to explain your weakness please feel free to return to the ER and I am happy to re-evaluate Prescriptions: No Action vitamin B complex [B Complex 1] tablet 1 tab PO DAILY fluticasone propion-salmeterol [Wixela Inhub] 250-50 mcg/dose blister with device 1 ea inhalation BID Qty: 180 3RF irbesartan 150 mg tablet 150 mg PO DAILY Qty: 90 3RF magnesium oxide 250 mg magnesium tablet 250 mg PO DAILY omeprazole 20 mg capsule,delayed release(DR/EC) 20 mg PO DAILY PRN (Reason: pain (scale score 1-3)) acetaminophen 325 mg capsule 650 mg PO Q6H PRN (Reason: pain) (DME) ResMED bipap See Rx Instructions .Route .MEDSUPPLY Qty: 1 0RF Rx Instructions: use As directed. IPAP 10 cmH2O EPAP 4 cm H2O -provide mask, tubing, filters, supplies needed please Spiriva Respimat 2.5 mcg/actuation mist 2 puff INHALATION DAILY Qty: 4 11RF hydrocodone-acetaminophen 5-325 mg tablet 1 tab PO Q8H PRN (Reason: pain) Qty: 10 0RF potassium citrate 99 mg capsule PO DAILY furosemide 20 mg tablet 20 mg PO DAILY Patient Comments: TAKE ONE TABLET BY MOUTH DAILY albuterol sulfate 90 mcg/actuation HFA aerosol inhaler 2 puff inhalation ONCE nitroglycerin 0.4 mg tablet, sublingual sublingual diltiazem HCl 180 mg capsule,extended release 24hr 180 mg PO DAILY carvedilol 6.25 mg tablet 6.25 mg PO BID Eliquis 2.5 mg tablet 2.5 mg PO BID Qty: 180 3RF Gemtesa 75 mg tablet 75 mg PO DAILY Qty: 90 3RF rosuvastatin 5 mg tablet 5 mg PO DAILY Qty: 90 3RF Referrals: Anum Quispe DO [Primary Care Provider, Family Practice] Stand Alone Forms: Patient Portal/API
== END 2025-06-07 16:16 | disposition home or self-care (01) ==
PROVIDERS: Emergency Provider Emergency Medicine; PCP Family Medicine
DX: R53.1 Weakness (principal); N64.89 Other specified disorders of breast; Z79.01 Long term (current) use of anticoagulants
CPT/HCPCS: 70450; 76642; 80053; 83605; 84484; 85025; 86850; 86900; 86901; 87040; 93005; 93010; 99283; 99284